=== PATIENT | male | born 2000 | race Caucasian/White ===

== ENCOUNTER 2020-05-03 12:45 | Emergency (ER) | payer OTHER, SELFPAY ==
[2020-05-03 13:30] VITALS: BP 151/102; PULSE 90; RESP 16; TEMP 36.6; O2SAT 98
[2020-05-03 13:57] LABS: Anion Gap 6 mmol/L (8-16); Blood Urea Nitrogen 9 mg/dL (9-20); Calcium 9.5 mg/dL (8.4-10.2); Carbon Dioxide 31 mmol/L (22-30); Chloride 103 mmol/L (98-107); Estimated CRCL calculation 192 ml/min; Estimated Glomerular Filt Rate > 60; Glucose 92 mg/dL (75-110); Magnesium 1.7 mg/dL (1.6-2.3); Potassium 4.5 mmol/L (3.4-5.0); Sodium 140 mmol/L (137-145)
[2020-05-03 14:57] VITALS: BP 140/78; PULSE 89; RESP 18; TEMP 36.7; O2SAT 100
--- NOTE | 2020-05-03 15:52 | ED.EXTPRO ---
HPI - Extremity Problem General Chief complaint: Extremity Problem,Nontraumatic Stated complaint: R ARM PAIN Time Seen by Provider: 05/03/20 15:21 Source: patient Mode of arrival: ambulatory Limitations: no limitations History of Present Illness HPI Narrative: This is a 20 year old male that presents to the ER for muscle spasming over the last week. Reports almost every hour he has cramping that happens in his right forearm and calf. It lasts a couple of seconds and is relieved on its own. Denies any associated symptoms. Denies fever, vomiting, pain, erythema, or edema. Related Data Home Medications Medication Instructions Recorded Confirmed lisinopril 40 mg PO DAILY 01/23/19 Allergies Allergy/AdvReac Type Severity Reaction Status Date / Time No Known Allergies Allergy Unverified 05/03/20 15:02 Review of Systems Review of Systems: Narrative: CONSTITUTIONAL: Denies fever GASTROINTESTINAL: Denies abdominal pain, nausea, vomiting SKIN: Denies rash MUSCULOSKELETAL: Reports myalgias. Denies joint pain NEUROLOGIC: Denies headache, numbness, or weakness. All systems reviewed & are unremarkable except as noted in HPI and below PMFSH Past Medical History Medical History (Updated 05/03/20 @ 17:17 by Xochilt García PA-C) HTN (hypertension) Social History Social History Smoking status: Never smoker Exam Narrative: Exam Narrative: GENERAL: Well-appearing, obese, and in no acute distress. HEAD: Normocephalic, atraumatic. EYES: EOMI. ENT: Nares clear, no rhinorrhea or epistaxis. Mucous membranes moist. Oropharynx without tonsillar hypertrophy exudate or other lesions. Bilateral TMs pearly barrientos non-bulging NECK: Supple. No adenopathy or masses. CHEST: Clear to auscultation. No respiratory distress. No wheezes rales or rhonchi HEART: Regular rate and rhythm. No murmur heard. Normal peripheral pulses. EXTREMITIES: Normal range of motion. No edema. Strength equal in bilateral upper and lower extremities (5/5) SKIN: Warm, dry, no rash. NEURO: No focal deficits. Alert and oriented x3. CN II-XII grossly intact PSYCH: Normal mood and affect Course Vital Signs Vital signs: Vital Signs Temperature 97.8 F 05/03/20 13:30 Pulse Rate 90 05/03/20 13:30 Respiratory Rate 16 05/03/20 13:30 Blood Pressure 151/102 H 05/03/20 13:30 Pulse Oximetry 98 05/03/20 13:30 Temperature 98.0 F 05/03/20 14:57 Pulse Rate 78 05/03/20 17:04 Respiratory Rate 18 05/03/20 17:04 Blood Pressure 138/72 05/03/20 17:04 Pulse Oximetry 99 05/03/20 17:04 MDM - Extremity (Nontraumatic) MDM Narrative Medical decision making narrative: Patient presents to the ER for muscle spasms. He is afebrile and nontoxic-appearing. Vitals are stable. CBC and metabolic panel without concerning findings. Magnesium is normal. ESR and CRP are not elevated. CK is normal. Patient updated on case findings. He was hydrated while in the ED. Instructed to follow-up with primary care provider. Patient was given warnings to return to the ER Lab Data Attestation: I reviewed the patient's lab results. Result diagrams: 05/03/20 16:21 05/03/20 13:38 Labs: Lab Results 05/03/20 05/03/20 05/03/20 Range/Units 13:38 16:21 16:21 WBC 9.3 (4.5-10.0) K/mm3 RBC 5.65 (4.6-6.20) M/mm3 Hgb 15.7 (14.0-18.0) g/dL Hct 47.2 (42.0-52.0) % MCV 83.5 (80-100) fl MCH 27.8 (26-34) pg MCHC 33.3 (32-36) g/dl RDW 13.2 (11.5-14.5) % Plt Count 332 (150-375) k/mm3 MPV 9.4 (7.4-10.4) fl Immature Gran % (Auto) 0.4 (0-0.5) % Neut % (Auto) 66.9 (45.5-73.1) % Lymph % (Auto) 23.2 (18.3-44.2) % Collier % (Auto) 8.2 (2.6-8.5) % Eos % (Auto) 0.9 (0-4.4) % Baso % (Auto) 0.4 (0.2-1.2) % Lymph # (Auto) 2.16 (0.9-3.2) K/mm3 Collier # (Auto) 0.8 H (0.1-0.6) K/mm3 Eos # (Auto) 0.1 (0-0.3) K/mm3
[2020-05-03 16:25] LABS: Basophils Percent Auto 0.4 % (0.2-1.2); Eosinophils Absolute Auto 0.1 K/mm3 (0-0.3); Eosinophils Percent Auto 0.9 % (0-4.4); Hematocrit 47.2 % (42.0-52.0); Hemoglobin 15.7 g/dL (14.0-18.0); Immature Granulocyte Absolute 0.04 K/mm3 (0.00-0.031); Immature Granulocyte Percent A 0.4 % (0-0.5); Lymphocytes Absolute Auto 2.16 K/mm3 (0.9-3.2); Lymphocytes Percent Auto 23.2 % (18.3-44.2); Mean Corpuscular HGB Conc 33.3 g/dl (32-36); Mean Corpuscular Hemoglobin 27.8 pg (26-34); Mean Corpuscular Volume 83.5 fl (80-100); Mean Platelet Volume 9.4 fl (7.4-10.4); Monocytes Absolute Auto 0.8 K/mm3 (0.1-0.6); Monocytes Percent Auto 8.2 % (2.6-8.5); Neutrophils Absolute Auto 6.2 K/mm3 (1.3-6.7); Neutrophils Percent Auto 66.9 % (45.5-73.1); Platelet Count Result 332 k/mm3 (150-375); Red Blood Count 5.65 M/mm3 (4.6-6.20); Red Cell Distribution Width 13.2 % (11.5-14.5); White Blood Count 9.3 K/mm3 (4.5-10.0)
[2020-05-03 16:38] LABS: Creatine Kinase 103 U/L (55-170)
[2020-05-03 16:52] LABS: Alanine Aminotransferase 56 U/L (4-50); Albumin Level 5.1 g/dL (3.5-5.1); Alkaline Phosphatase 83 U/L (38-126); Aspartate Amino Transferase 30 U/L (17-59); Bilirubin,Total 0.3 mg/dL (0.2-1.3); CRP 0.9 mg/dL (<1.0)
[2020-05-03] MEDS: SODIUM CHLORIDE 0.9% IV 1,000 ML 999 ML IV CONT (17:03)
[2020-05-03 17:04] VITALS: BP 138/72; PULSE 78; RESP 18; O2SAT 99
[2020-05-03 17:13] LABS: Erythrocyte Sedimentation Rate 2 mm/hr (0-20)
[2020-05-03 19:23] VITALS: BP 138/72; PULSE 80; RESP 20; O2SAT 100
== END 2020-05-03 19:24 | disposition home or self-care (01) ==
PROVIDERS: Emergency Medicine; Physician Assistant; Emergency Provider Emergency Medicine; PCP Pediatrics
DX: R25.2 Cramp and spasm (principal); I10 Essential (primary) hypertension
CPT/HCPCS: 36415; 80048; 80076; 82550; 83735; 85025; 85652; 86140; 96360; 96361; 99283; J7030

== ENCOUNTER 2023-06-28 14:15 | Outpatient (RCR) | payer OTHER, SELFPAY ==
[2023-06-28 14:19] VITALS: BMI 37.5
[2023-06-28 14:52] VITALS: BMI 37.5
== END 2023-09-17 11:06 | disposition home or self-care (01) ==
LOC: ANHDMC 14:15
PROVIDERS: PCP Nurse Practitioner Family; Visit Provider Nurse Practitioner Family
DX: E78.5 Hyperlipidemia, unspecified (principal); I10 Essential (primary) hypertension; Z68.38 Body mass index [BMI] 38.0-38.9, adult; Z71.3 Dietary counseling and surveillance
CPT/HCPCS: 97802

== ENCOUNTER 2023-11-26 08:30 | Outpatient (CLI) | payer OTHER, SELFPAY ==
--- NOTE | 2023-11-26 08:37 | EST_ITS ---
Patient Info Name: Eh Ken Age: 23 years : 2000 Gender: Male Ht: 70 in Wt: 210 lbs BSA: 2.19 m2 HR: 88 bpm BP: 128 / 60 mmHg Exam Date: 11/26/2023 8:47 AM Exam Location: [facility] Patient Status: Outpatient Admit Date: 11/26/2023 Staff Ordering Physician: Andrea Solorio DO Attending Provider: Andrea Solorio DO Exercise Technologist: Samantha Lew RDCS Exercise Physician: Andrea Solorio DO Exam Type: CA stress test treadmill Study Info A treadmill exercise stress test was performed. Summary 1. 1. Negative Minesh exercise stress test for ischemic ST changes by ECG criteria. 2. 2. Good functional capacity, achieving 10 METs of workload. 3. 3. Appropriate HR response to exercise. 4. 4. Appropriate HR recovery at 1 minute post exercise. 5. 5. No imaging with stress testing. 6. 6. Patient informed of the above results. Protocol: Minesh Stress ECG Details Stage: REST Duration (min): 1 min : 48 sec Speed (mph): 0.0 Grade (%): 0 HR (bpm): 90 SBP (mmHg): 128 DBP (mmHg): 60 METS: --- Stage: REST Duration (min): 7 min : 44 sec Speed (mph): 0.0 Grade (%): 0 HR (bpm): 100 SBP (mmHg): 128 DBP (mmHg): 60 METS: --- Stage: STAGE 1 Duration (min): 1 min : 0 sec Speed (mph): 1.7 Grade (%): 10 HR (bpm): 109 SBP (mmHg): 128 DBP (mmHg): 60 METS: --- Stage: STAGE 1 Duration (min): 2 min : 0 sec Speed (mph): 1.7 Grade (%): 10 HR (bpm): 113 SBP (mmHg): 128 DBP (mmHg): 60 METS: --- Stage: STAGE 1 Duration (min): 3 min : 0 sec Speed (mph): 1.7 Grade (%): 10 HR (bpm): 121 SBP (mmHg): 147 DBP (mmHg): 72 METS: --- Stage: STAGE 2 Duration (min): 1 min : 0 sec Speed (mph): 2.5 Grade (%): 12 HR (bpm): 115 SBP (mmHg): 147 DBP (mmHg): 72 METS: --- Stage: STAGE 2 Duration (min): 2 min : 0 sec Speed (mph): 2.5 Grade (%): 12 HR (bpm): 103 SBP (mmHg): 159 DBP (mmHg): 68 METS: --- Stage: STAGE 2 Duration (min): 3 min : 0 sec Speed (mph): 2.5 Grade (%): 12 HR (bpm): 122 SBP (mmHg): 159 DBP (mmHg): 68 METS: --- Stage: STAGE 3 Duration (min): 1 min : 0 sec Speed (mph): 3.4 Grade (%): 14 HR (bpm): 33 SBP (mmHg): 159 DBP (mmHg): 68 METS: --- Stage: STAGE 3 Duration (min): 2 min : 0 sec Speed (mph): 3.4 Grade (%): 14 HR (bpm): 56 SBP (mmHg): 145 DBP (mmHg): 57 METS: --- Stage: STAGE 3 Duration (min): 3 min : 0 sec Speed (mph): 3.4 Grade (%): 14 HR (bpm): 59 SBP (mmHg): 145 DBP (mmHg): 57 METS: --- Stage: RECOVERY Duration (min): 0 min : 59 sec Speed (mph): 0.0 Grade (%): 0 HR (bpm): 100 SBP (mmHg): 145 DBP (mmHg): 57 METS: --- Stage: RECOVERY Duration (min): 1 min : 59 sec Speed (mph): 0.0 Grade (%): 0 HR (bpm): 135 SBP (mmHg): 145 DBP (mmHg): 57 METS: --- Stage: RECOVERY Dura
== END 2023-11-26 08:31 | disposition home or self-care (01) ==
PROVIDERS: PCP Nurse Practitioner Family; Visit Provider Internal Medicine Cardiovascular Disease
DX: R07.9 Chest pain, unspecified (principal)
CPT/HCPCS: 93017

== ENCOUNTER 2024-03-24 09:36 | Inpatient (IN) | payer OTHER, SELFPAY ==
--- NOTE | ~2024-03-24 | MR_ITS ---
EXAMINATION: MR lumbar spine wo/w con DATE: 03/25/2024 12:32 INDICATION: Paresthesias at the toes, fingers and trunk TECHNIQUE: Magnetic resonance imaging (MRI) of the lumbar spine was performed without and with 17 mL Multihance intravenous contrast. Sequences included sagittal T2-weighted FSE, sagittal T2-weighted FS FSE, and sagittal and axial T1-weighted FSE. Postcontrast sequences included axial T2-weighted FSE, sagittal T1-weighted FSE, and axial and sagittal T1-weighted FS FSE. COMPARISON: None FINDINGS: 7 degrees lumbar levocurvature. Sagittal alignment is normal. Vertebral body heights are normal. Nor mal marrow signal. Mild disc height loss at L4-L5. The conus medullaris terminates at L1. There is no rmal signal in the caudal spinal cord. No abnormally enhancing lesions identified. Paravertebral soft tissues are unremarkable. The following disc levels are specifically discussed: L1-L2: The disc does not extend beyond the endplate margin. There is minimal bilateral facet joint os teoarthritis. There is no neural foraminal stenosis. There is no central canal stenosis. L2-L3: The disc does not extend beyond the endplate margin. There is mild bilateral facet joint osteo arthritis. There is no neural foraminal stenosis. There is no central canal stenosis. L3-L4: The disc does not extend beyond the endplate margin. There is mild left and minimal right face t joint osteoarthritis. There is no neural foraminal stenosis. There is no central canal stenosis. L4-L5: The disc does not extend beyond the endplate margin. There is mild bilateral facet joint osteo arthritis. There is no neural foraminal stenosis. There is no central canal stenosis. L5-S1: The disc does not extend beyond the endplate margin. There is mild right and minimal left face t joint osteoarthritis. There is no neural foraminal stenosis. There is no central canal stenosis. IMPRESSION: 1. 7 degrees lumbar levocurvature with minimal spondylosis. Otherwise unremarkable lumbar spine MRI w ith no abnormally enhancing lesions. Reviewed, dictated and finalized at location A. INUOUS PROCESS TANNER ROTARY DRUM IMPRESSION: 1. 7 degrees lumbar levocurvature with minimal spondylosis. Otherwise unremarka ble lumbar spine MRI with no abnormally enhancing lesions.
--- NOTE | ~2024-03-24 | CT_ITS ---
EXAMINATION: CT brain wo con DATE: 03/24/2024 10:42 INDICATION: Paresthesias of the hands, legs, and torso. TECHNIQUE: Computed tomography (CT) of the head was performed without intravenous contrast. The mA wa s adjusted according to patient size. Iterative reconstruction technique was employed. The dose-lengt h product was 605.33 mGy-cm. COMPARISON: None FINDINGS: There are scattered areas of low attenuation in the cerebral white matter. There is no int racranial hemorrhage, acute infarction, or abnormal intracranial mass lesion. The ventricles are norm al in size. The orbits are normal. The paranasal sinuses are clear. The mastoid air cells are normal. IMPRESSION: 1. Mild nonspecific cerebral white matter disease. The differential diagnosis includes premature airplane flight attendant supervisor jacob small vessel ischemic disease (especially if the patient has cardiovascular risk factors), demyel inating disease such as multiple sclerosis, drug abuse, vasculitis, or reactive astrocytosis (gliosis ) secondary to nonspecific etiology. Reviewed, dictated and finalized at location A. CONVERSION ANALYST IMPRESSION: 1. Mild nonspecific cerebral white matter disease. The differential diagnosis i ncludes premature chronic small vessel ischemic disease (especially if the bethany ent has cardiovascular risk factors), demyelinating disease such as multiple sc lerosis, drug abuse, vasculitis, or reactive astrocytosis (gliosis) secondary t o nonspecific etiology.
--- NOTE | ~2024-03-24 | XR_ITS ---
EXAMINATION: XR lumbar puncture diagnostic DATE: 03/26/2024 10:45 INDICATION: Suspected multiple sclerosis with abnormal brain MR and paresthesias at the fingers and t oes TECHNIQUE: The procedure including the risks and benefits was discussed with the patient. Risks discu ssed included spinal headache, cerebrospinal fluid leak, bleeding, and infection. The patient underst ood the risks and agreed to proceed. A timeout was performed to verify the patient's name, date of , and procedure to be performed. The skin overlying the L4-L5 level was prepped and draped in usual sterile fashion. Subcutaneous 1% lidocaine was used for local anesthesia. A 22 gauge spinal n eedle was advanced under fluoroscopic guidance. The needle was removed and the entry site was cleaned and dressed. There were no immediate complications. A total of 1 fluoroscopic image(s) were obtaine d. The amount of fluoroscopy time used during this procedure was 2.1 minutes. Total DAP was 0.5 Gycm^2 The patient was taken to the nursing area for observation. FINDINGS: Real-time fluoroscopy demonstrates the needle at the L4-L5 level. Opening pressure was 14 c m water. (Normal range is variably defined as 6-20 cm water and up to 25 cm water in obese patients. Pressure >25 cm water is one of the modified Dandy criteria for idiopathic intracranial hypertension) . 15 mL of clear, colorless fluid was collected in 4 tubes. IMPRESSION: 1. Successful fluoro-guided lumbar puncture with normal opening pressure of 14 cm water. Reviewed, dictated and finalized at location A. KEEPER
--- NOTE | ~2024-03-24 | MR_ITS ---
EXAMINATION: MR thoracic spine wo/w con DATE: 03/25/2024 12:31 INDICATION: Paresthesias of the toes, fingers and trunk. Abnormal CT TECHNIQUE: Magnetic resonance imaging (MRI) of the thoracic spine was performed without and with 17 m L Multihance intravenous contrast. Sagittal localizer T1-weighted FSE of the cervicothoracic spine wa s obtained. Sequences included sagittal T2-weighted FSE, sagittal T2-weighted FS FSE, sagittal T1-simran ghted FSE and axial T1-weighted SE. Postcontrast sequences included axial T2-weighted FSE, sagittal T 1-weighted FS FSE, and axial T1-weighted FS SE. COMPARISON: None FINDINGS: Alignment is normal.Vertebral body heights are normal. Normal marrow signal.Minimal to mild disc heig ht loss at T3-T4 through T8-T9. The discs do not extend beyond the endplate margins with no central c anal stenosis. There is multilevel minimal to mild thoracic facet osteoarthritis most prominent in th e lower thoracic spine. No neural foraminal stenosis. There are T2 hyperintense cord lesions at the a nterior midline at T8-T9 and at T7, on the left posteriorly at C7 and posterior centrally at C4-C5. T he conus terminates at L1. Paravertebral soft tissues are unremarkable. IMPRESSION: 1. 2 spinal cord lesions with increased T2 signal but without enhancement in the lower thoracic spine and a couple in the lower cervical spine consistent with multiple sclerosis. Reviewed, dictated and finalized at location A. MAIL CARRIER IMPRESSION: 1. 2 spinal cord lesions with increased T2 signal but without enhancement in th e lower thoracic spine and a couple in the lower cervical spine consistent with multiple sclerosis.
--- NOTE | ~2024-03-24 | MR_ITS ---
EXAMINATION: MR cervical spine wo/w con DATE: 03/25/2024 12:31 INDICATION: Paresthesias of the toes, fingers, and trunk/abdomen. TECHNIQUE: Magnetic resonance imaging (MRI) of the cervical spine was performed without and with 17 m L MultiHance intravenous contrast. COMPARISON: None FINDINGS: There is mild kyphosis of cervical spine. There is mild chronic anterior wedging of C7 and T1 vertebral bodies. Intervertebral disc heights are normal. There are approximately 3 ill-defined le sions of increased T2-weighted signal intensity in the cervical spinal cord. No contrast enhancement. The following disc levels are specifically discussed: C2-C3 through C7-T1: The disc does not extend beyond the endplate margin. There is no uncovertebral j oint osteoarthritis. There is no facet joint osteoarthritis. There is no neural foraminal stenosis. T here is no central canal stenosis. IMPRESSION: 1. Spinal cord lesions, consistent with multiple sclerosis. Reviewed, dictated and finalized at location A. MENTATION ENGINEER
--- NOTE | ~2024-03-24 | MR_ITS ---
EXAMINATION: MR brain/brain stem wo/w con DATE: 03/25/2024 12:30 INDICATION: Paresthesias of toes, fingers, and trunk/abdomen. TECHNIQUE: Magnetic resonance imaging (MRI) of the brain and brainstem was performed without and with 17 mL MultiHance intravenous contrast. COMPARISON: Head CT 03/24/2024 FINDINGS: There are greater than 30 total lesions of increased T2-weighted signal intensity in the br ain. Of these lesions, multiple are periventricular, multiple are juxtacortical, and multiple are inf ratentorial. None of the lesions enhance. There is no acute ischemic infarct or intracranial hemorrha ge. The ventricles are normal in size. The orbits are normal. There is mild mucosal thickening in rig ht maxillary sinus. The mastoid air cells are normal. IMPRESSION: 1. Brain lesions, most likely multiple sclerosis. Reviewed, dictated and finalized at location A. L JOB TITLES
[2024-03-24 09:46] VITALS: BP 152/84; PULSE 99; RESP 15; TEMP 36.6; O2SAT 100
[2024-03-24 10:51] VITALS: RESP 20; O2SAT 100
[2024-03-24 10:55] VITALS: BP 138/69; PULSE 98; RESP 18; O2SAT 100
[2024-03-24 10:59] LABS: Basophils Percent Auto 0.5 % (0.2-1.2); Hematocrit 41.4 % (42.0-52.0); Hemoglobin 14.3 g/dL (14.0-18.0); Immature Granulocyte Absolute 0.01 K/mm3 (0.00-0.031); Immature Granulocyte Percent A 0.2 % (0-0.5); Lymphocytes Absolute Auto 1.65 K/mm3 (0.9-3.2); Lymphocytes Percent Auto 39.5 % (18.3-44.2); Mean Corpuscular HGB Conc 34.5 g/dl (32-36); Mean Corpuscular Hemoglobin 28.7 pg (26-34); Mean Corpuscular Volume 83.1 fl (80-100); Mean Platelet Volume 9.7 fl (7.4-10.4); Monocytes Absolute Auto 0.3 K/mm3 (0.1-0.6); Monocytes Percent Auto 7.7 % (2.6-8.5); Neutrophils Absolute Auto 2.1 K/mm3 (1.3-6.7); Neutrophils Percent Auto 51.1 % (45.5-73.1); Platelet Count Result 329 k/mm3 (150-375); Red Blood Count 4.98 M/mm3 (4.6-6.20); White Blood Count 4.2 K/mm3 (4.5-10.0)
[2024-03-24 11:11] LABS: Alanine Aminotransferase 30 U/L (6-50); Albumin Level 4.9 g/dL (3.5-5.1); Alkaline Phosphatase 77 U/L (38-126); Anion Gap 16 mmol/L (4-12); Aspartate Amino Transferase 23 U/L (17-59); Bilirubin,Total 0.8 mg/dL (0.2-1.3); Blood Urea Nitrogen 11 mg/dL (9-20); Carbon Dioxide 20 mmol/L (22-30); Chloride 104 mmol/L (98-107); Estimated CRCL calculation 136 ml/min; Estimated Glomerular Filt Rate > 60; Glucose 88 mg/dL (65-110); Magnesium 1.9 mg/dL (1.6-2.3); Phosphorus 3.1 mg/dL (2.5-4.5); Potassium 3.7 mmol/L (3.4-5.0); Sodium 140 mmol/L (137-145)
[2024-03-24 11:49] LABS: Vitamin D 25 Hydroxy 21.1 ng/mL
[2024-03-24 12:17] LABS: Folic Acid 4.8 ng/mL (2.76->20)
--- OUTSIDE RECORDS SUMMARY | 2024-03-24 12:22 | XMS_ITS | Referral Summary ---
Author Organization [facility] Address [address] [place] [address] Care Team Providers Care Rock Crusher Operator Name Role Phone Jannet Srinivasan MD Primary Care Provider [phone] [facility],non-owned Affiliates and Associated Physician Practices is amultiple site organization consisting of ambulatory clinics and hospital sitesin [place], [place], [place] and [place]. This disclosure is being madepursuant to the Care Everywhere program and may not contain all information available regarding this patient. Last updated 17.[facility] Allergies No known active allergies Medications * Be aware that medications may not be up to date on this document. Alwaysverify current medications with the patient. Medication Sig Dispensed Refills Start Date End Date Status lisinopril (PRINIVIL; ZESTRIL) 30 MG tablet TAKE 1 (ONE) TABLET BY MOUTH ONCE DAILY TAKE IN EVENING. 90 tablet 09/09/2020 Active Active Problems Problem Noted Date Diagnosed Date White coat syndrome with diagnosis of hypertensi on 10/03/2018 Essential hypertension 09/25/2016 LVH (left ventricular hypertrophy) 09/25/2016 BMI (body mass index) pediat jana, > 99% for age, obese child, tertiary care intervention 09/25/2016 S/P arthroscopic surgery of right knee 7 Acute lateral meniscus tear of right knee 2016 Acute lateral meniscal tear 04/30/2016 Right knee injury 04/25/2016 Quadriceps muscle strain 12/02/2013 Hypercholesteremia High risk medication use Immunizations Name Administration Dates Next Due INFLUENZA VACCINE 12/10/2019 Social History Tobacco Use Types Packs/Day Years Used Date Smoking Tobacco: Light Smoker Smokeless Tobacco: Never Comments:smokes one cigarett e, once a week Alcohol Use Standard Drinks/Week Comments No 0 (1 standard drink = 0.6 oz pur e alcohol) Sex and Gender Information Value Date Recorded Sex Assigned at Not on file Gender Identity Not on file Sexual Orientation Not on file Last Filed Vital Signs Vital Sign Reading Time Taken Comments Blood Pressure 152/78 12/24/2019 2:14 PM [employer] Pulse 94 10/03/2018 5:06 PM CDT Temperature 36.9 C (98.4 F) 10/03/2018 5:06 PM CDT Respiratory Rate 16 10/03/2018 5:06 PM CDT Oxygen Saturation 99% 10/03/2018 5:06 PM CDT Inhaled Oxygen Concentration - - Weight 129.9 kg (286 lb 6 oz) 12/24/2019 2:14 PM [employer] Height 179.5 cm (5' 10.67 ) 12/24/2019 2:[address] Body Mass Index 40.32 12/24/2019 2:14 PM [employer] Plan of Treatment Not on file Medical Devices Implanted Type Area Program Officer Device Identifier Shelf Expiration Date Model / Serial / Lot Truespan Meniscal Repair System Implanted:Qty: 6 on 05/01/2016 by Gume Chahal MD at [facility] Right: Knee 02/04/2019 [id number] / / [id number] Administered Medications Care Teams Rock Crusher Operator Relationship Specialty Start Date End Date Jannet Srinivasan MD [address] [place] [address] [address] [place] [id number] PCP - General Pediatrics 11/24/13
--- OUTSIDE RECORDS SUMMARY | 2024-03-24 12:22 | XMS_ITS | Clinical Summary ---
Author Organization [facility] Address [address] [place] [address] Care Team Providers Care Customs Manager Name Role Phone Jannet Srinivasan MD Primary Care Provider [phone] Source Comments [facility],non-owned Affiliates and Associated Physician Practices is amultiple site organization consisting of ambulatory clinics and hospital sitesin [place], [place], [place] and [place]. This disclosure is being madepursuant to the Care Everywhere program and may not contain all information available regarding this patient. Last updated 17.[facility] Allergies No known active allergies Medications * [...] Comments Blood Pressure 152/78 12/24/2019 2:14 PM CARBONATION EQUIPMENT OPERATOR Pulse 94 10/03/2018 5:06 PM CDT Temperature 36.9 C (98.4 F) 10/03/2018 5:06 PM CDT Respiratory Rate 16 10/03/2018 5:06 PM CDT Oxygen Saturation 99% 10/03/2018 5:06 PM CDT Inhaled Oxygen Concentration - - Weight 129.9 kg (286 lb 6 oz) 12/24/2019 2:14 PM CARBONATION EQUIPMENT OPERATOR Height 179.5 cm (5' 10.67 ) 12/24/2019 2:[address] Body Mass Index 40.32 12/24/2019 2:14 PM CARBONATION EQUIPMENT OPERATOR Plan of Treatment Health Maintenance Due Date Last Done Comments HIV SCREENING 2015 HPV VACCINE (1 - Male 3-dose series) 2015 MENINGOCOCCAL (Group B) VACC INE (1 of 2 - Standard) 2016 HEPATITIS C SCREENING 03/20/2018 DTAP/TDAP/TD VACCINES (1 - Tdap) 2019 HEPATITIS B VACCINE (1 of 3 - 19+ 3-dose series) 2019 PNEUMOCOCCAL VACCINE (1 of 2 - PCV) 2019 COVID-19 VACCINE (1 - 2023-2 5 season) 2023 INFLUENZA VACCINE (#1) 2023 12/10/2019 DEPRESSION SCREENING 02/06/2024 ZOSTER VACCINE (1 of 2) 2050 HIB VACCINE Aged Out No longer eligi ble based on patient's age to complete this topic MENINGOCOCCAL VACCINE Aged Out No jos linda eligible based on patient's age to complete this topic Medical Devices Implanted Type Area Scuba Diver Device Identifier Shelf Expiration Date Model / Serial / Lot Truespan Meniscal Repair System Implanted:Qty: 6 on 05/01/2016 by Gume Chahal MD at [facility] Right: Knee 02/04/2019 [id number] / / [id number] Care Teams Customs Manager Relationship Specialty Start Date End Date Jannet Srinivasan MD [facility] [address] [place] [address] PCP - General Pediatrics 11/24/13
--- OUTSIDE RECORDS SUMMARY | 2024-03-24 12:22 | XMS_ITS | Patient Health Summary ---
Author Organization [facility] Namely Address [address] [place] [address] Care Team Providers Care Tie In Machine Operator Name Role Phone Jannet Srinivasan MD Primary Care Provider [phone] Note from [facility],non-owned Affiliates and Associated Physician Practices is amultiple site organization consisting of ambulatory clinics and hospital sitesin [place], [place], [place] and [place]. This disclosure is being madepursuant to the Care Everywhere program and may not contain all information available regarding this patient. Last updated 17.[facility] Allergies No known active allergies Medications * Be aware that medications may not be up to date on this document. Alwaysverify current medications with the patient. * lisinopril (PRINIVIL; ZESTRIL) 30 MG tablet(Started 09/09/2020) TAKE 1 (ONE) TABLET BY MOUTH ONCE DAILY TAKE IN EVENING. Active Problems Problem Noted Date Diagnosed Date [...] 12/02/2013 Hypercholesteremia High risk medication use Immunizations * INFLUENZA VACCINE(Given 12/10/2019) Social History Tobacco Use Types Packs/Day Years [...] Comments Blood Pressure 152/78 12/24/2019 2:14 PM MACHINE II CUTTER Pulse 94 10/03/2018 5:06 PM CDT Temperature 36.9 C (98.4 F) 10/03/2018 5:06 PM CDT Respiratory Rate 16 10/03/2018 5:06 PM CDT Oxygen Saturation 99% 10/03/2018 5:06 PM CDT Inhaled Oxygen Concentration - - Weight 129.9 kg (286 lb 6 oz) 12/24/2019 2:14 PM MACHINE II CUTTER Height 179.5 cm (5' 10.67 ) 12/24/2019 2:[address] Body Mass Index 40.32 12/24/2019 2:14 PM MACHINE II CUTTER Medical Devices Implanted Type Area Pathology Laboratory Director Device Identifier Shelf Expiration Date Model / Serial / Lot Truespan Meniscal Repair System Implanted:Qty: 6 on 05/01/2016 by Gume Chahal MD at [facility] [place] [facility] Right: Knee 02/04/2019 [id number] / / [id number] Procedures * ECHO CONSULT - PEDIATRIC(Performed 12/24/2019) Performed for Essential hypertension, LVH (left ventricular hypertrophy) * URINALYSIS MICROSCOPIC ONLY REFLEXED(Performed 12/20/2019) Performed for Essential hypertension, Hypercholesteremia * PROTEIN CREATININE RATIO URINE RANDOM PNL(Performed 12/20/2019) Performed for Essential hypertension, Hypercholesteremia * URINALYSIS W/MICROSCOPIC NO CULTURE(Performed 12/20/2019) Performed for Essential hypertension, Hypercholesteremia * VITAMIN D 25-HYDROXY(Performed 12/20/2019) Performed for Essential hypertension, Hypercholesteremia * CYSTATIN C LEVEL(Performed 12/20/2019) Performed for Essential hypertension, Hypercholesteremia * URIC ACID BLOOD(Performed 12/20/2019) Performed for Essential hypertension, Hypercholesteremia * PHOSPHORUS BLOOD(Performed 12/20/2019) Performed for Essential hypertension, Hypercholesteremia * PTH INTACT(Performed 12/20/2019) Performed for Essential hypertension, Hypercholesteremia * IRON + TIBC PANEL(Performed 12/20/2019) Performed for Essential hypertension, Hypercholesteremia * FERRITIN(Performed 12/20/2019) Performed for Essential hypertension, Hypercholesteremia * COMPREHENSIVE METABOLIC PANEL(Performed 12/20/2019) Performed for Essential hypertension, Hypercholesteremia * LIPID PROFILE(Performed 12/20/2019) Performed for Essential hypertension, Hypercholesteremia * CBC W/O DIFFERENTIAL(Performed 12/20/2019) Performed for Essential hypertension, Hypercholesteremia * SKIN TEST PPD - POINT OF CARE(Performed 10/08/2018) Performed for PPD screening test * SKIN TEST PPD - POINT OF CARE(Performed 10/03/2018) Performed for PPD screening test * URINALYSIS W/MICROSCOPIC NO CULTURE(Performed 10/02/2018) Performed for Essential hypertension * PROTEIN CREATININE RATIO URINE RANDOM PNL(Performed 10/02/2018) Performed for Essential hypertension * ECHO CONSULT - PEDIATRIC(Performed 10/02/2018) Performed for Essential hypertension * CYSTATIN C LEVEL(Performed 04/20/2018) Performed for Essential hypertension, malignant, LVH (left ventricular hypertrophy) * IRON + TIBC PANEL(Performed 04/20/2018) Performed for Essential hypertension, malignant, LVH (left ventricular hypertrophy) * FERRITIN(Performed 04/20/2018) Performed for Essential hypertension, malignant, LVH (left ventricular hypertrophy) * PTH INTACT(Performed 04/20/2018) Performed for Essential hypertension, malignant, LVH (left ventricular hypertrophy) * AST BLOOD(Performed 04/20/2018) Performed for Essential hypertension, malignant, LVH (left ventricular hypertrophy) * ALT(Performed 04/20/2018) Performed for Essential hypertension, malignant, LVH (left ventricular hypertrophy) * LIPID PROFILE(Performed 04/20/2018) Performed for Essential hypertension, malignant, LVH (left ventricular hypertrophy) * CBC W/O DIFFERENTIAL(Performed 04/20/2018) Performed for Essential hypertension, malignant, LVH (left ventricular hypertrophy) * RENAL FUNCTION PANEL(Performed 04/20/2018) Performed for Essential hypertension, malignant, LVH (left ventricular hypertrophy) * URINALYSIS MICROSCOPIC ONLY REFLEXED(Performed 04/20/2018) Performed for Essential hypertension, malignant, LVH (left ventricular hypertrophy) * PROTEIN CREATININE RATIO URINE RANDOM PNL(Performed 04/20/2018) Performed for Essential hypertension, malignant, LVH (left ventricular hypertrophy) * URINALYSIS W/MICROSCOPIC NO CULTURE(Performed 04/20/2018) Performed for Essential hypertension, malignant, LVH (left ventricular hypertrophy) * VITAMIN D 25-HYDROXY(Performed 04/20/2018) Performed for Essential hypertension, malignant, LVH (left ventricular hypertrophy) * LAB RESULTS ORDER(Performed 09/18/2017) * ECHO CONSULT - PEDIATRIC(Performed 09/03/2017) Performed for Essential hypertension * LAB RESULTS ORDER(Performed 08/29/2017) * PROTEIN CREATININE RATIO URINE RANDOM PNL(Performed 01/16/2017) Performed for LVH (left ventricular hypertrophy) * URINALYSIS W/MICROSCOPIC NO CULTURE(Performed 01/16/2017) Performed for LVH (left ventricular hypertrophy) * LAB RESULTS ORDER(Performed 11/29/2016) * LAB RESULTS ORDER(Performed 08/22/2016) * IMAGING/RADIOLOGY/XRAY RESULTS ORDER(Performed 08/22/2016) * ECHO CONSULT - PEDIATRIC(Performed 08/18/2016) Performed for Elevated blood pressure reading without diagnosis of hypertension * CARDIAC RHYTHM STRIP ORDER(Performed 05/03/2016) * ARTHROSCOPY KNEE MENISCECTOMY LATERAL(Performed 05/01/2016) Performed for Acute lateral meniscal tear, right, subsequent encounter Results * ECHO CONSULT - PEDIATRIC (12/24/2019 1:33 PM MACHINE II CUTTER) Only the most recent of4 resultswithin the time period is included. 12/24/2019 1:33 PM MACHINE II CUTTER Narrative Procedure Note Kaz Lebron, [facility] - 12/24/2019 [address] [place] [address] Fax Non-Congenital Transthoracic Report Pat.Name: GIFTY CRESENCIO Max Pat.ID: [id number] .Date: 12/24/2019 Refer.: PHOEBE KING Exam Time: 1:33:00 PM Study Type:Non-Congenital TTE Height: 182cm Weight: 131.1kg BSA: 2.48 m2 Age: 2 2000,19Y Sex: MALE Sonogrphr: Mikael Lynch RDCS Pat. Stat.:Outpatient CPT - 4: 62514 Reason for Study: Essential hypertesion History / Clinical: TTE Procedures: 2D Non-congenital, Doppler Complete, Color Flow Race: 1 Visit ID: [id number] SUMMARY: Impression: Poor acoustic windows Mild concentric left ventricular hypertrophy No pathologic valvular stenosis or regurgitation. Normal left ventricular systolic function. Compared to prior echocardiogram 10/02/18, no significant change Findings: Anatomic Relationships: Abdominal situs solitus. There is levocardia. Atrial situs solitus. The AV alignment is concordant. The ventricular looping is D-looped. The VA connection is concordant. The arterial relationships are normal. Systemic Veins: Normal right SVC. Normal IVC. Pulmonary Veins: Pulmonary venous return not well visualized. Right Atrium: The right atrial size is normal. Left Atrium: The left atrial size is normal. Atrial Septum: Intact atrial septum. Left to right atrial shunt, none. Tricuspid Valve: The tricuspid valve is structurally normal. There is no stenosis. There is physiologic regurgitation present. Mitral Valve: The mitral valve is structurally normal. There is no stenosis. There is no regurgitation present. Right Ventricle: The cavity size is normal. The wall thickness is normal. The systolic function is normal. RV Outflow Tract: The outflow tract is normal. Left Ventricle: The cavity size is normal. The wall thickness is mildly increased. The systolic function is normal. LV Outflow Tract: The outflow tract is normal. Ventricular Septum: The septal motion is normal. There is no defect with no shunting. Pulmonary Valve: The pulmonic valve is structurally normal. There is no stenosis. There is physiologic regurgitation present. Aortic Valve: The aortic valve is structurally normal. There is no stenosis. There is no regurgitation present. Pulmonary Artery: The MPA is normal. The LPA is not well visualized. The RPA is not well visualized. Aorta: The aortic root is normal. The aortic arch is patent with no flow acceleration;. The arch sidedness is not evaluated. PDA: No PDA with no shunting. Coronary Arteries: Not evaluated. Pericardium: No pericardial effusion. MEASUREMENTS: MMODE Ventricles LVIDd 50.84 mm (zsc -1.4) LV%fs 55.33 % (zsc 4.6) LVIDs 22.71 mm (zsc -2.7) LV EF 85.72 % IVSd 17.31 mm (zsc 2.4) LV Mass 296.82 g (zsc 0.3) IVSs 20.82 mm (zsc 2.2) LV MaIx 119.69 g/m LVPWd 10.55 mm (zsc -0.2) LV Ma/ht 163.09 g/m LVPWs 23.26 mm Signed 12/24/2019 02:10 PM Shirley Wade MD Patience Chance MD ECHO ORDERABLES [facility] [address] [place] [address] * URINALYSIS MICROSCOPIC ONLY REFLEXED (12/20/2019 10:05 AM MACHINE II CUTTER) Only the most recent of2 resultswithin the time period is included. WBC UA 0-5 0 - 5 /hpf [facility] INSURANCE BILL RBC UA 0-2 0 - 2 /hpf [facility] INSURANCE BILL Epithelial Cells (non renal) None seen 0 - 10 /hpf [facility] INSURANCE BILL Epithelial Cells (renal) NOT NEEDED [facility] INSURANCE BILL Comment:Ancillary determined the test is not needed. Casts ua NOT NEEDED [facility] INSURANCE BILL Comment:Ancillary determined the test is not needed. Casts UA NOT NEEDED [facility] INSURANCE BILL Comment:Ancillary determined the test is not needed. Crystals UA NOT NEEDED [facility] INSURANCE BILL Comment:Ancillary determined the test is not needed. Crystals UA NOT NEEDED [facility] INSURANCE BILL Comment:Ancillary determined the test is not needed. Mucus UA Present Not Estab. [facility] INSURANCE BILL Bacteria UA Few None seen/Few [facility] INSURANCE BILL Yeast UA NOT NEEDED [facility] INSURANCE BILL Comment:Ancillary determined the test is not needed. Trichomonas UA NOT NEEDED [facility] INSURANCE BILL Comment:Ancillary determined the test is not needed. Comment Urine NOT NEEDED [facility] INSURANCE BILL Comment: FASTING Ancillary determined the test is not needed. 12/20/2019 10:0 5 AM MACHINE II CUTTER 12/20/2019 Narrative Resulting Agency Comment Lab Testing performed at: [employer] [address] [id number] Patience Chance MD LAB - URINALYSIS ORD ERABLES Performing Organization Address City/[facility] Co de Phone Number [facility] INSURANCE BILL [address] [place] [address] * (ABNORMAL) URINALYSIS W/MICROSCOPIC NO CULTURE (12/20/2019 10:05 AM MACHINE II CUTTER) Only the most recent of4 resultswithin the time period is included. Specific [place] UA 1.023 1.005 - 1.030 [facility] INSURANCE BILL pH UA 6.0 5.0 - 7.5 [facility] INSURANCE BILL Color UA Yellow Yellow [facility] INSURANCE BILL Appearance Clear Clear [facility] INSURANCE BILL Leukocyte UA Negative Negative [facility] INSURANCE BILL Protein UA 1+(A) Negative/Tra ce [facility] INSURANCE BILL Glucose UA Negative Negative [facility] INSURANCE BILL Ketone UA Trace(A) Negative [facility] INSURANCE BILL Occult Blood Urine Negative Negative [facility] INSURANCE BILL Bilirubin UA Negative Negative [facility] INSURANCE BILL Urobilinogen 0.2 0.2 - 1.0 mg/dL [facility] INSURANCE BILL Nitrite UA Negative Negative [facility] INSURANCE BILL Microscopic Examination Urine See below: [facility] INSURANCE BILL Comment: Microscopic was indicated and was performed. FASTING Microscopic Examination Urine NOT NEEDED [facility] INSURANCE BILL Comment: FASTING Ancillary determined the test is not needed. Urine URINE SPECIMEN OBTAINED BY CLEAN CATCH PROCEDURE / Unknown 12/20/2019 10:05 AM MACHINE II CUTTER 12/20/2019 Narrative Resulting Agency Comment Lab Testing performed at: [employer] [address] [id number] Patience Chance MD LAB - URINALYSIS ORD ERABLES Performing Organization Address City/State/[facility] de Phone Number [facility] INSURANCE BILL [address] [place] [address] * CYSTATIN C LEVEL (12/20/2019 10:05 AM MACHINE II CUTTER) Only the most recent of2 resultswithin the time period is included. Cystatin C 0.84 0.62 - 1.16 mg/L [facility] INSURANCE BILL Comment:FASTING Blood BLOOD SPECIMEN / Unknown 12/20/2019 10:05 AM MACHINE II CUTTER 12/20/2019 Narrative Resulting Agency Comment Lab Testing performed at: [facility] [id number] Patience Chance MD LAB - CHEMISTRY ROBERTO SCOTT Performing Organization Address [facility] de Phone Number [facility] INSURANCE BILL [address] [place] [address] * URIC ACID BLOOD (12/20/2019 10:05 AM MACHINE II CUTTER) Uric Acid 8.3 3.7 - 8.6 mg/dL [facility] INSURANCE BILL Comment: Therapeutic target for gout patients: <6.0 FASTING Blood BLOOD SPECIMEN / Unknown 12/20/2019 10:05 AM MACHINE II CUTTER 12/20/2019 Narrative Resulting Agency Comment Lab Testing performed at: [facility] [employer] [facility] [id number] Patience Chance MD LAB - CHEMISTRY ROBERTO SCOTT Performing Organization Address [facility] de Phone Number [facility] INSURANCE BILL [address] [place] [address] * PTH INTACT (12/20/2019 10:05 AM MACHINE II CUTTER) Only the most recent of2 resultswithin the time period is included. PTH Intact 25 15 - 65 pg/mL [facility] INSURANCE BILL Comment:FASTING Blood BLOOD SPECIMEN / Unknown 12/20/2019 10:05 AM MACHINE II CUTTER 12/20/2019 Narrative Resulting Agency Comment Lab Testing performed at: [employer] [facility] [id number] Patience Chance MD LAB - CHEMISTRY ROBERTO SCOTT Performing Organization Address [facility] de Phone Number [facility] [address] [place] [address] * (ABNORMAL) VITAMIN D (25-HYDROXY) (12/20/2019 10:05 AM MACHINE II CUTTER) Only the most recent of2 resultswithin the time period is included. Vitamin D, 25 Hydroxy 20.3(L) 30.0 - 100.0 ng/mL [facility] INSURANCE BILL Comment: Vitamin D deficiency has been defined by the [place] of Medicine and an Endocrine Society practice guideline as a level of serum 25-OH vitamin D less than 20 ng/mL (1,2). The Endocrine Society went on to further define vitamin D insufficiency as a level between 21 and 29 ng/mL (2). 1. IOM ([place] of Medicine). 2010. Dietary reference intakes for calcium and D. [place]: The National Academies Press. 2. Angela MF, Manuelito MENDOZA, Gunjan GONZÁLES, et al. Evaluation, treatment, and prevention of vitamin D deficiency: an Endocrine Society clinical practice guideline. JCEM. 2010; 96(7):1911-30. FASTING Blood BLOOD SPECIMEN / Unknown 12/20/2019 10:05 AM MACHINE II CUTTER 12/20/2019 Narrative Resulting Agency Comment [facility] performed at: [facility] [address] [facility] [id number] Patience Chance MD LAB - CHEMISTRY ROBERTO SCOTT Performing Organization Address [facility] Co de Phone Number [facility] INSURANCE BILL [address] [place] [address] * CBC NO DIFFERENTIAL (12/20/2019 10:05 AM MACHINE II CUTTER) Only the most recent of2 resultswithin the time period is included. WBC 6.9 3.4 - 10.8 x10E3/uL [facility] INSURANCE BILL RBC 5.53 4.14 - 5.80 x10E6/uL [facility] INSURANCE BILL Hemoglobin 15.2 13.0 - 17.7 g/dL [facility] INSURANCE BILL Hematocrit 45.4 37.5 - 51.0 % [facility] INSURANCE BILL MCV 82 79 - 97 fL [facility] INSURANCE BILL MCH 27.5 26.6 - 33.0 pg [facility] INSURANCE BILL MCHC 33.5 31.5 - 35.7 g/dL [facility] INSURANCE BILL RDW 13.2 11.6 - 15.4 % [facility] INSURANCE BILL Platelet Count 274 150 - 450 x10E3/uL [facility] INSURANCE BILL nRBC NOT NEEDED [facility] INSURANCE BILL Comment: FASTING Ancillary determined the test is not needed. Blood BLOOD SPECIMEN / Unknown 12/20/2019 10:05 AM MACHINE II CUTTER 12/20/2019 Narrative Resulting Agency Comment Lab Testing performed [facility] [address] [facility] [id number] Patience Chance MD LAB - HEMATOLOGY ORD ERABLES [facility] INSURANCE BILL [address] [place] [address] * (ABNORMAL) COMPREHENSIVE METABOLIC PANEL (12/20/2019 10:05 AM MACHINE II CUTTER) Glucose 92 65 - 99 mg/dL [facility] INSURANCE BILL BUN 12 6 - 20 mg/dL [facility] INSURANCE BILL Creatinine 0.86 0.76 - 1.27 mg/dL [facility] INSURANCE BILL BUN/Creatinine Ratio 14 9 - 20 [facility] INSURANCE BILL Sodium 138 134 - 144 mmol/L [facility] INSURANCE BILL Potassium 4.7 3.5 - 5.2 mmol/L [facility] INSURANCE BILL Chloride 103 96 - 106 mmol/L [facility] INSURANCE BILL CO2 21 20 - 29 mmol/L [facility] INSURANCE BILL Calcium 10.0 8.7 - 10.2 mg/dL [facility] INSURANCE BILL Protein Total 7.6 6.0 - 8.5 g/dL [facility] INSURANCE BILL Albumin 4.9 4.1 - 5.2 g/dL [facility] INSURANCE BILL Globulin Total 2.7 1.5 - 4.5 g/dL [facility] INSURANCE BILL Albumin/Globulin Ratio 1.8 1.2 - 2.2 [facility] INSURANCE BILL Bilirubin Total 0.4 0.0 - 1.2 mg/dL [facility] INSURANCE BILL Alkaline Phosphatase 94 39 - 117 IU/L [facility] INSURANCE BILL AST 25 0 - 40 IU/L [facility] INSURANCE BILL ALT 45(H) 0 - 44 IU/L [facility] INSURANCE BILL Comment:FASTING Blood BLOOD SPECIMEN / Unknown 12/20/2019 10:05 AM MACHINE II CUTTER 12/20/2019 Narrative Resulting Agency Comment Lab Testing performed at: [facility] [employer] [facility] [phone] Patience Chance MD LAB - CHEMISTRY ROBERTO SCOTT Performing Organization Address [facility] de Phone Number [facility] INSURANCE BILL [address] [place] [address] * PROTEIN CREATININE RATIO URINE RANDOM PNL (12/20/2019 10:05 AM MACHINE II CUTTER) Only the most recent of4 resultswithin the time period is included. Creatinine Urine 175.1 Not Estab. mg/dL [facility] INSURANCE BILL Protein Urine 23.3 Not Estab. mg/dL [facility] INSURANCE BILL Protein/Creatin ine Ratio 133 0 - 200 mg/g creat [facility] INSURANCE BILL Comment:FASTING Urine URINE SPECIMEN OBTAINED BY CLEAN CATCH PROCEDURE / Unknown 12/20/2019 10:05 AM MACHINE II CUTTER 12/20/2019 Narrative Resulting Agency Comment Lab Testing performed at: [facility] [employer] [facility] [id number] Patience Chance MD LAB - URINE CHEMISTR Y ORDERABLES Performing Organization Address [facility] de Phone Number [facility] INSURANCE BILL [address] [place] [address] * PHOSPHORUS BLOOD (12/20/2019 10:05 AM MACHINE II CUTTER) Phosphorus 3.5 3.4 - 5.5 mg/dL [facility] INSURANCE BILL Comment:FASTING Blood BLOOD SPECIMEN / Unknown 12/20/2019 10:05 AM MACHINE II CUTTER 12/20/2019 Narrative Resulting Agency Comment Lab Testing performed at: [facility] [employer] [facility] [id number] Patience Chnace MD LAB - CHEMISTRY ROBERTO SCOTT Performing Organization Address City/[facility]/ZIP Co de Phone Number [facility] INSURANCE BILL [address] [place] [address] * IRON + TIBC PANEL (12/20/2019 10:05 AM MACHINE II CUTTER) Only the most recent of2 resultswithin the time period is included. TIBC 381 250 - 450 ug/dL [facility] INSURANCE BILL UIBC 300 111 - 343 ug/dL [facility] INSURANCE BILL Iron 81 38 - 169 ug/dL [facility] INSURANCE BILL Iron Saturation 21 15 - 55 % [facility] INSURANCE BILL Comment:FASTING Blood BLOOD SPECIMEN / Unknown 12/20/2019 10:05 AM MACHINE II CUTTER 12/20/2019 Narrative Resulting Agency Comment Lab Testing performed at: [employer] [place] [employer] [facility] [phone] Patience Chance MD LAB - CHEMISTRY ROBERTO SCOTT Performing Organization Address [facility] Co de Phone Number [facility] INSURANCE BILL [address] [place] [address] * (ABNORMAL) FERRITIN (12/20/2019 10:05 AM MACHINE II CUTTER) Only the most recent of2 resultswithin the time period is included. Ferritin 163(H) 16 - 124 ng/mL [facility] INSURANCE BILL Comment:FASTING Blood BLOOD SPECIMEN / Unknown 12/20/2019 10:05 AM MACHINE II CUTTER 12/20/2019 Narrative Resulting Agency Comment Lab Testing performed at: [employer] [place] [facility] [id number] Patience Chance MD LAB - CHEMISTRY ROBERTO SCOTT Performing Organization Address City/[facility] Co de Phone Number [facility] INSURANCE BILL [address] [place] [address] * (ABNORMAL) LIPID PROFILE (12/20/2019 10:05 AM MACHINE II CUTTER) Only the most recent of2 resultswithin the time period is included. Cholesterol 241(H) 100 - 169 mg/dL [facility] INSURANCE BILL Triglycerides 62 0 - 89 mg/dL [facility] INSURANCE BILL HDL Cholesterol 42 >39 mg/dL [facility] INSURANCE BILL VLDL Calculated 10 5 - 40 mg/dL [facility] INSURANCE BILL LDL Calculated 189(H) 0 - 109 mg/dL [facility] INSURANCE BILL Comment [facility] INSURANCE BILL Comment: Possible Familial Hypercholesterolemia. FH should be suspected in a patient less than 20 years of age when fasting LDL cholesterol is above 159 mg/dL or non-HDL cholesterol is above 189 mg/dL. A family history of high cholesterol and heart disease in 1st degree relatives should be collected. J Clin Lipidol 2011; 5:133-140. FASTING Blood BLOOD SPECIMEN / Unknown 12/20/2019 10:05 AM MACHINE II CUTTER 12/20/2019 Narrative Resulting Agency Comment Lab Testing performed at: [facility] [address] [facility] [id number] Patience Chance MD LAB - CHEMISTRY ROBERTO SCOTT [facility] INSURANCE BILL [address] [place] [address] * SKIN TEST PPD - POINT OF CARE (10/08/2018 3:20 PM CDT) Only the most recent of2 resultswithin the time period is included. PPD Other MISCELLANEOUS SAMPLE S / Unknown 10/08/2018 3:20 PM CDT Marcella Hazel APRN-DIRECTOR OF EXTENSION WORK LAB - POINT OF CARE ORDERABLES * RENAL FUNCTION PANEL (04/20/2018 10:58 AM CDT) Glucose 89 65 - 99 mg/dL [facility] INSURANCE BILL BUN 10 6 - 20 mg/dL [facility] INSURANCE BILL Creatinine 0.95 0.76 - 1.27 mg/dL [facility] INSURANCE BILL BUN/Creatinine Ratio 11 9 - 20 [facility] INSURANCE BILL Sodium 140 134 - 144 mmol/L [facility] INSURANCE BILL Potassium 4.7 3.5 - 5.2 mmol/L [facility] INSURANCE BILL Chloride 100 96 - 106 mmol/L [facility] INSURANCE BILL CO2 24 20 - 29 mmol/L [facility] INSURANCE BILL Calcium 10.0 8.7 - 10.2 mg/dL [facility] INSURANCE BILL Phosphorus 3.8 2.5 - 5.6 mg/dL [facility] INSURANCE BILL Albumin 5.0 3.5 - 5.5 g/dL [facility] INSURANCE BILL Comment:FASTING Blood BLOOD SPECIMEN / Unknown 04/20/2018 10:58 AM CDT 04/20/2018 Narrative Resulting Agency Comment [facility] [place] [address] [facility] [phone] Patience Chance MD LAB - CHEMISTRY ROBERTO SCOTT [facility] INSURANCE BILL [address] [place] [address] * ALT (04/20/2018 10:58 AM CDT) ALT 23 0 - 44 IU/L [facility] INSURANCE BILL Comment:FASTING Blood BLOOD SPECIMEN / Unknown 04/20/2018 10:58 AM CDT 04/20/2018 Narrative Resulting Agency Comment [facility] [place] [address] [facility] [phone] Patience Chance MD LAB - CHEMISTRY ROBERTO SCOTT Performing Organization Address City/[facility] & Hospital/[facility] Co de Phone Number [facility] INSURANCE BILL [address] [place] [address] * AST BLOOD (04/20/2018 10:58 AM CDT) AST 19 0 - 40 IU/L [facility] INSURANCE BILL Comment:FASTING Blood BLOOD SPECIMEN / Unknown 04/20/2018 10:58 AM CDT 04/20/2018 Narrative Resulting Agency Comment [facility] [address] [facility] [id number] Patience Chance MD LAB - CHEMISTRY ROBERTO SCOTT Performing Organization Address City/[facility] Co de Phone Number [facility] INSURANCE BILL [address] [place] [address] * LAB RESULTS ORDER (09/18/2017 5:58 PM CDT) Only the most recent of4 resultswithin the time period is included. Narrative 09/18/2017 5:58 PM CDT Ordered by an unspecified provider. Scanned Document LAB - THERAPEUTIC DR UG MONITORING ORDERABLES * IMAGING/RADIOLOGY/XRAY RESULTS ORDER (08/22/2016 8:06 PM CDT) Anatomical Region Laterality Modality Other Narrative 08/22/2016 8:06 PM CDT Ordered by an unspecified provider. Scanned Document IMAGING * CARDIAC RHYTHM STRIP ORDER (05/03/2016 6:05 PM CDT) Narrative 05/03/2016 6:05 PM CDT Ordered by an unspecified provider. Scanned Document CARDIAC SERVICES ORD ERABLES Care Teams Tie In Machine Operator Relationship Specialty Start Date End Date Jannet Srinivasan MD [address] [place] [address] [address] [place] [address] PCP - General Pediatrics 11/24/13
--- NOTE | 2024-03-24 13:22 | ED_ITS ---
HPI - General Adult General Chief complaint: Unspecified Stated complaint: numb stomach, toes, and fingers Time Seen by Provider: 03/24/24 10:11 History of Present Illness HPI narrative: Patient is a 24-year-old male who presents ER with numbness. He has pins and needle sensation to his hands bilaterally as well as to his abdomen and back from the underside of the ribcage and a goes down to his feet bilaterally. It spares his groin and rectum. No difficulty with urination defecation. No physical weakness. He has had some intermittent numbness in a foot or arm intermittently over the last year but nothing that has been like this. This has been constant for 3 days. No family history of autoimmune disease. No recent viral illness. Denies fevers or chills or sweats. He does take is up a lb and has had a 100 lb weight loss over the last year. He eats 2 cutie oranges in the morning, does not you lunch, and then has dinner consisting of protein and vegetables. He does not take any vitamin supplements. Related Data Allergies Allergy/AdvReac Type Severity Reaction Status Date / Time No Known Allergies Allergy Verified 03/24/24 09:38 Review of Systems 2 Review of Systems: All systems reviewed & are unremarkable except as noted in HPI and below Constitutional: Constitutional: Reports no additional constitutional complaints ENT: Reports system reviewed and no additional complaints, except as documented Cardiovascular: Cardiovascular: Reports no additional cardiovascular complaints Respiratory: Respiratory: Reports no additional respiratory complaints Gastrointestinal: Gastrointestinal: Reports no additional gastrointestinal complaints Musculoskeletal: Musculoskeletal: Reports no additional musculoskeletal complaints Neurologic: Reports system reviewed and no additional complaints, except as documented [facility] Past Medical History Medical History (Updated 03/24/24 @ 14:16 by Wandy Grider PA-C) Normal cardiac stress test (11/2023) Hyperlipidemia Hypertension Family History Family History (Updated 03/24/24 @ 14:15 by Wandy Grider PA-C) Father Alcoholism Acute myocardial infarction Grandparent Hypertension Heart problem Social History Social History Social History: Surrogate medical decision maker: Code status: Smoking status: Never smoker Smokeless tobacco user: chewing tobacco Second hand tobacco smoke exposure: Yes Alcohol intake: current Drinks per week: 1 Substance use: never Substance use type: does not use Do You Feel Safe in your Home?: Yes Lack of Transportation: No Lack of Food: Never True Current Housing: I Have Housing Concerned About Future Housing: No Difficulty Paying Gas/Electric Bills: No Difficulty Paying for Meds: No Currently Unemployed: No Education: Trade/Vocational Certificate Difficulty w/ Childcare or Family Care: No Spiritual care concerns: No Exam 2 Narrative: GENERAL: Well-appearing, well-nourished, and in no acute distress. HEAD: Normocephalic, atraumatic. EYES: PERRLA and EOMI. ENT: Mucous membranes moist. CHEST: Clear to auscultation. No respiratory distress. HEART: Regular rate and rhythm. Normal peripheral pulses. ABDOMEN: Soft, nontender, nondistended. EXTREMITIES: Normal range of motion. No edema. 5/5 strength and rate all joints lower and upper extremities. Or you SKIN: Warm, dry, no rash. NEURO: No focal deficits. Paresthesia but no actual anesthesia on testing. Alert and oriented x3. PSYCH: Normal mood and affect. Course Course Emergency Course: Abnormal CT. Concern for demyelinating disease in my opinion. Recommend admission for observation and MRI of the head and spine. Hospitalists agreeable. Patient verbalized understanding. Vital Signs Vital signs: Vital Signs Temperature 97.9 F 03/24/24 09:46 Pulse Rate 99 03/24/24 09:46 Respiratory Rate 15 03/24/24 09:46 Blood Pressure 152/84 H 03/24/24 09:46 Pulse Oximetry 100 03/24/24 09:46 Oxygen Delivery Room Air 03/24/24 09:46 Temperature 97.9 F 03/24/24 09:46 Pulse Rate 92 03/24/24 14:45 Respiratory Rate 20 03/24/24 14:45 Blood Pressure 120/70 03/24/24 14:45 Pulse Oximetry 94 03/24/24 14:45 Oxygen Delivery Room Air 03/24/24 09:46 Medical Decision Making Vital Signs Vital Signs: Vital Signs Temperature 97.9 F 03/24/24 09:46 Pulse Rate 99 03/24/24 09:46 Respiratory Rate 15 03/24/24 09:46 Blood Pressure 152/84 H 03/24/24 09:46 Pulse Oximetry 100 03/24/24 09:46 Oxygen Delivery Room Air 03/24/24 09:46 Temperature 97.9 F 03/24/24 09:46 Pulse Rate 92 03/24/24 14:45 Respiratory Rate 20 03/24/24 14:45 Blood Pressure 120/70 03/24/24 14:45 Pulse Oximetry 94 03/24/24 14:45 Oxygen Delivery Room Air 03/24/24 09:46 Lab Data 03/24/24 10:50 03/24/24 10:50 Labs: Lab Results 03/24/24 Range/Units 10:50 WBC 4.2 L (4.5-10.0) K/mm3 RBC 4.98 (4.6-6.20) M/mm3 Hgb 14.3 (14.0-18.0) g/dL Hct 41.4 L (42.0-52.0) % MCV 83.1 (80-100) fl MCH 28.7 (26-34) pg MCHC 34.5 (32-36) g/dl RDW 13.0 (11.5-14.5) % Plt Count 329 (150-375) k/mm3 MPV 9.7 (7.4-10.4) fl Immature Gran % (Auto) 0.2 (0-0.5) % Neut % (Auto) 51.1 (45.5-73.1) % Lymph % (Auto) 39.5 (18.3-44.2) % [place] % (Auto) 7.7 (2.6-8.5) % Eos % (Auto) 1.0 (0-4.4) % Baso % (Auto) 0.5 (0.2-1.2) % Lymph # (Auto) 1.65 (0.9-3.2) K/mm3 [place] # (Auto) 0.3 (0.1-0.6) K/mm3 Eos # (Auto) 0.0 (0-0.3) K/mm3 Baso # (Auto) 0.0 (0.0-0.1) K/mm3 Abs Immat Gran (auto) 0.01 (0.00-0.031) K/mm3 Absolute Neuts (auto) 2.1 (1.3-6.7) K/mm3 Absolute Nucleated RBC 0.000 (0.0-0.012) K/mm3 Nucleated RBC % 0.0 (0.0-0.2) % Sodium 140 (137-145) mmol/L Potassium 3.7 (3.4-5.0) mmol/L Chloride 104 (98-107) mmol/L Carbon Dioxide 20 L (22-30) mmol/L Anion Gap 16 H (4-12) mmol/L BUN 11 (9-20) mg/dL Creatinine 0.80 (0.7-1.3) mg/dL Estim Creat Clear Calc 136 ml/min Estimated GFR > 60 (59 - ) Glucose 88 (65-110) mg/dL Calcium 10.0 (8.4-10.2) mg/dL Phosphorus 3.1 (2.5-4.5) mg/dL Magnesium 1.9 (1.6-2.3) mg/dL Total Bilirubin 0.8 (0.2-1.3) mg/dL AST 23 (17-59) U/L ALT 30 (6-50) U/L Alkaline Phosphatase 77 (38-126) U/L Total Protein 8.0 (6.3-8.2) g/dL Albumin 4.9 (3.5-5.1) g/dL Vitamin B1 Pending Vitamin B6 Pending Vitamin B12 441.0 (239-931) pg/mL Vitamin D 25-Hydroxy 21.1 ng/mL Folate 4.8 (2.76->20) ng/mL TSH (Reflex) 0.430 L (0.465-4.68) uIU/mL Free T4 1.50 (0.78-2.19) ng/dL Total T3 1.49 (0.97-1.69) NG/ML Imaging Data Radiologist's impression: ITS Impressions Head CT 03/24/24 10:45 IMPRESSION: 1. Mild nonspecific cerebral white matter disease. The differential diagnosis includes premature chronic small vessel ischemic disease (especially if the patient has cardiovascular risk factors), demyelinating disease such as multiple sclerosis, drug abuse, vasculitis, or reactive astrocytosis (gliosis) secondary to nonspecific etiology. Discharge Plan Discharge Clinical Impression: Paresthesia, Abnormal CT of brain Patient Disposition: Still a Patient Condition: Stable
--- NOTE | 2024-03-24 13:30 | PM.IMHP ---
H&P: HPI History of Present Illness Date/Time: 03/24/24 13:30 Chief Complaint: Numbness of fingers, toes, and stomach. Narrative: This is a pleasant 24-year-old male with hypertension and hyperlipidemia who presented to the emergency department via private vehicle for evaluation of numbness in his fingers, toes, and stomach. The patient provides the following history. He gives a several day history of numbness in his fingertips and toes and sensations of pins and needles the bottom of his feet. He also has sensation changes over the trunk and with further questioning he reports intermittent paresthesias in the left upper extremity dating back many months though they had always been fleeting. Today he had difficulties gripping tools at work. He also endorses intermittent sensation changes on the trunk. He denies balance issues, falls, visual changes, difficulty speaking and swallowing, shortness of breath, muscle weakness, saddle anesthesia, urinary retention, and bowel incontinence. No recent vaccinations or illnesses. Of note, he has been on Zepbound for not quite a year and has lost right around 100 lb. He believes that he eats a well-balanced diet and he has no known history of vitamin deficiencies. In the ED: Blood pressure on arrival was 152/84 in the remainder of his vital signs were stable. Labs are significant for WBC count of 4.2, anion gap 16, carbon dioxide 20, glucose 88. Head CT showed mild nonspecific cerebral white matter disease. He is being admitted in this setting for further evaluation and neurology consultation. Review of Systems Review of Systems: 12 systems were reviewed and are negative except for as per HPI. [facility] Past Medical History Medical History Normal cardiac stress test (11/2023) Hyperlipidemia Hypertension Family History Family History Father Alcoholism Acute myocardial infarction Grandparent Hypertension Heart problem Social History Social History (Updated 03/24/24 @ 19:42 by Wandy Grider PA-C) Social History: Surrogate medical decision maker: Blossom Ken, mother. Code status: Full code. Smoking status: Never smoker Smokeless tobacco user: chewing tobacco Second hand tobacco smoke exposure: Yes Alcohol intake: current Drinks per week: 1 Substance use: never Substance use type: does not use Do You Feel Safe in your Home?: Yes Lack of Transportation: No Lack of Food: Never True Current Housing: I Have Housing Concerned About Future Housing: No Difficulty Paying Gas/Electric Bills: No Difficulty Paying for Meds: No Currently Unemployed: No Education: Trade/Vocational Certificate Difficulty w/ Childcare or Family Care: No Spiritual care concerns: No Meds Home Medications and Allergies Home Medications ?Medication ?Instructions ?Recorded ?Confirmed ?Type lisinopril 40 mg tablet 40 mg PO DAILY #90 tabs 02/15/24 03/24/24 Rx tirzepatide (weight loss) 12.5 12.5 mg (0.5 mL) subcut WEEKLY #2 03/17/24 03/24/24 Rx mg/0.5 mL subcutaneous pen mL injector (Zepbound) Allergies Allergy/AdvReac Type Severity Reaction Status Date / Time No Known Allergies Allergy Verified 03/24/24 09:38 Vital Signs Vital Signs - 24 hr 03/24/24 09:46 03/24/24 10:51 03/24/24 10:55 Temperature 97.9 F Pulse Rate 99 98 Respiratory Rate 15 20 18 Blood Pressure 152/84 H 138/69 Pulse Oximetry 100 100 100 Oxygen Delivery Room Air Exam Narrative: General: Well-developed, nontoxic-appearing male sitting up in bed in no acute distress. Weight: 85 kg. BMI: 125.4. HEENT: Wearing corrective lenses. PERRL, EOMI. Sclera anicteric. Oral mucosa moist. Oropharynx clear. Neck: Supple. No thyromegaly or bruits. Respiratory: Lungs are clear to auscultation bilaterally. Cardiovascular: Regular rate and rhythm with S1-S2. Gastrointestinal: Abdomen is soft, nontender, and nondistended with positive bowel sounds. Skin: Warm and dry. No rash or lesions on limited exam. Extremities: No cyanosis, clubbing, or edema. Radial and pedal pulses intact. Neurological: Alert and oriented. Cranial nerves 2-12 are grossly intact. Speech is clear. No facial asymmetry. No pronator drift. Strength 5/5 in upper and lower extremities. Subjective sensation changes in the hands, feet, and trunk. Psychiatric: Pleasant and cooperative with normal mood and affect. Judgment and insight intact. H&P: Results Labs Labs: Short CBC 03/24/24 Range/Units 10:50 WBC 4.2 L (4.5-10.0) K/mm3 Hgb 14.3 (14.0-18.0) g/dL Hct 41.4 L (42.0-52.0) % Plt Count 329 (150-375) k/mm3 BMP 03/24/24 10:50 Sodium 140 Potassium 3.7 Chloride 104 Carbon Dioxide 20 L BUN 11 Creatinine 0.80 Glucose 88 Calcium 10.0 Liver Function 03/24/24 Range/Units 10:50 Total Bilirubin 0.8 (0.2-1.3) mg/dL AST 23 (17-59) U/L ALT 30 (6-50) U/L Alkaline Phosphatase 77 (38-126) U/L Albumin 4.9 (3.5-5.1) g/dL Impressions Head CT 03/24/24 10:45 IMPRESSION: 1. Mild nonspecific cerebral white matter disease. The differential diagnosis includes premature chronic small vessel ischemic disease (especially if the patient has cardiovascular risk factors), demyelinating disease such as multiple sclerosis, drug abuse, vasculitis, or reactive astrocytosis (gliosis) secondary to nonspecific etiology. Assessment and Plan Assessment and plan (1) Paresthesia: Code(s): R20.2 - Paresthesia of skin Status: Acute (2) Abnormal CT of brain: Code(s): R90.89 - Other abnormal findings on diagnostic imaging of central nervous system Status: Acute (3) Hypertension: Code(s): I10 - Essential (primary) hypertension Status: Acute (4) Hyperlipidemia: Qualifiers: Hyperlipidemia type: unspecified Qualified Code(s): E78.5 - Hyperlipidemia, unspecified Code(s): E78.5 - Hyperlipidemia, unspecified Status: Acute Plan The patient presented to the emergency department for evaluation of paresthesias as detailed in HPI. Labs, imaging, EKG, and all reports were personally reviewed. Brain CT showed mild nonspecific cerebral white matter disease and concerns were for possible multiple sclerosis. MRI of the brain and spine have been ordered. Neurology has been consulted for their opinion. Check for vitamin deficiencies as he is on a GLP-1. Initial blood pressure was a bit elevated and will be monitored closely. His home medications will be reviewed and resumed as appropriate. Findings and treatment plan were discussed with the patient. Questions were solicited and answered to satisfaction. The patient's medical management will be taken over by the hospitalist team in a.m. Quality VTE Prophylaxis VTE prophylaxis: mechanical ordered If No VTE Prophylaxis Answer both mechanical and pharmacologic: Reason no pharmacologic proph: low risk/not indicated The patient has been admitted under observation status. Hospitalist MIPS Advance Care Plan I have confirmed that the patient's Advanced Care Plan is present, code status is documented, or surrogate decision maker is listed in patient medical record.: Yes Medication Reconciliation I have utilized all available resources to obtain, update and review the patients current medications (includes all prescriptions, OTC, herbals, cannabis, and nutritional supplements).: Yes
--- OUTSIDE RECORDS SUMMARY | 2024-03-24 13:40 | XMS_ITS | Clinical Summary ---
Author Organization [facility] Address [address] [place] [address] Care Team Providers Care Tie Loader Name Role Phone Jannet Srinivasan MD Primary Care Provider [phone] Source Comments [facility],non-owned Affiliates and Associated Physician Practices is amultiple site organization consisting of ambulatory clinics and hospital sitesin [place], [place], [place] and [place]. This disclosure is being madepursuant to the Care Everywhere program and may not contain all information available regarding this patient. Last updated 17.[facility] Allergies No known active allergies Medications * [...] Comments Blood Pressure 152/78 12/24/2019 2:14 PM LOAN [employer] Pulse 94 10/03/2018 5:06 PM CDT Temperature 36.9 C (98.4 F) 10/03/2018 5:06 PM CDT Respiratory Rate 16 10/03/2018 5:06 PM CDT Oxygen Saturation 99% 10/03/2018 5:06 PM CDT Inhaled Oxygen Concentration - - Weight 129.9 kg (286 lb 6 oz) 12/24/2019 2:14 PM [employer] Height 179.5 cm (5' 10.67 ) 12/24/2019 2:[address] Body Mass Index 40.32 12/24/2019 2:14 PM [employer]AN [employer] Plan of Treatment Health Maintenance Due Date [...] this topic Medical Devices Implanted Type Area Personal Loan Specialist Device Identifier Shelf Expiration Date Model / Serial / Lot Truespan Meniscal Repair System Implanted:Qty: 6 on 05/01/2016 by Gume Chahal MD at [facility] Right: Knee 02/04/2019 [id number] / / [id number] Care Teams Tie Loader Relationship Specialty Start Date End Date Jannet Srinivasan MD [facility] [address] [place] [address] PCP - General Pediatrics 11/24/13
--- OUTSIDE RECORDS SUMMARY | 2024-03-24 13:40 | XMS_ITS | Referral Summary ---
Author Organization [facility] Address [address] [place] [address] Care Team Providers Care Data Entry Representative Name Role Phone Jannet Srinivasan MD Primary Care Provider [phone] Source Comments [facility],non-owned Affiliates and Associated Physician Practices is amultiple site organization consisting of ambulatory clinics and hospital sitesin [place], [place], [place] and [place]. This disclosure is being madepursuant to the Care Everywhere program and may not contain all information available regarding this patient. 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 Pulse 94 10/03/2018 5:06 PM CDT Temperature 36.9 C (98.4 F) 10/03/2018 5:06 PM CDT Respiratory Rate 16 10/03/2018 5:06 PM CDT Oxygen Saturation 99% 10/03/2018 5:06 PM CDT Inhaled Oxygen Concentration - - Weight 129.9 kg (286 lb 6 oz) 12/24/2019 2:14 PM [employer]AT MACH[employer] Height 179.5 cm (5' 10.67 ) 12/24/2019 2:[address] Body Mass Index 40.32 12/24/2019 2:14 PM [employer]AT MACHINE [employer] Plan of Treatment Not on file Medical Devices Implanted Type Area Product Development Actuary Device Identifier Shelf Expiration Date Model / Serial / Lot Truespan Meniscal Repair System Implanted:Qty: 6 on 05/01/2016 by Gume Chahal MD at [facility] Right: Knee 02/04/2019 [id number] / / [id number] Administered Medications Care Teams Data Entry Representative Relationship Specialty Start Date End Date Jannet Srinivasan MD [address] [place] [address] [address] [place] [id number] PCP - General Pediatrics 11/24/13
--- OUTSIDE RECORDS SUMMARY | 2024-03-24 13:40 | XMS_ITS | Patient Health Summary ---
Author Organization [facility] [employer] Address [address] [place] [address] Care Team Providers Care Senior Qualitative Researcher Name Role Phone Jannet Srinivasan MD Primary Care Provider [phone] Note from [facility],non-owned Affiliates and Associated Physician Practices is amultiple site organization consisting of ambulatory clinics and hospital sitesin [place], [place], [place] and [place]. This disclosure is being madepursuant to the Care Everywhere program and may not contain all information available regarding this patient. Last updated 17.[facility] Allergies No known active allergies Medications * [...] Comments Blood Pressure 152/78 12/24/2019 2:14 PM AEGIS CONSOLE OPERATOR TRACK Pulse 94 10/03/2018 5:06 PM CDT Temperature 36.9 C (98.4 F) 10/03/2018 5:06 PM CDT Respiratory Rate 16 10/03/2018 5:06 PM CDT Oxygen Saturation 99% 10/03/2018 5:06 PM CDT Inhaled Oxygen Concentration - - Weight 129.9 kg (286 lb 6 oz) 12/24/2019 2:14 PM AEGIS CONSOLE OPERATOR TRACK Height 179.5 cm (5' 10.67 ) 12/24/2019 2:[address] Body Mass Index 40.32 12/24/2019 2:14 PM AEGIS CONSOLE OPERATOR TRACK Medical Devices Implanted Type Area Process Development Chemist Device Identifier Shelf Expiration Date Model / Serial / Lot Truespan Meniscal Repair System Implanted:Qty: 6 on 05/01/2016 by Gume Chahal MD at [facility] Right: Knee 02/04/2019 [id number] / / [id number] Procedures * ECHO CONSULT - PEDIATRIC(Performed 12/24/2019) [...] ECHO CONSULT - PEDIATRIC (12/24/2019 1:33 PM AEGIS CONSOLE OPERATOR TRACK) Only the most recent of4 resultswithin the time period is included. 12/24/2019 1:33 PM AEGIS CONSOLE OPERATOR TRACK Narrative Procedure Note Kaz Lebron, [facility] - 12/24/2019 [address] [place] [address] Fax Non-Congenital Transthoracic Report Pat.Name: GIFTY CRESENCIO Max Pat.ID: [id number] .Date: 12/24/2019 Refer.: PHOEBE KING Exam Time: 1:33:00 PM Study Type:Non-Congenital TTE Height: 182cm Weight: 131.1kg BSA: 2.48 m2 Age: 2 2000,19Y Sex: MALE Sonogrphr: Mikael Lynch RDCS Pat. Stat.:Outpatient CPT - 4: 45998 Reason for Study: Essential hypertesion History / Clinical: TTE Procedures: 2D Non-congenital, Doppler Complete, Color Flow Race: 1 Visit ID: [id number] SUMMARY: Impression: Poor acoustic windows Mild concentric [...] Wade MD Patience Chance MD ECHO ORDERABLES [facility] [address] [place] [address] * URINALYSIS MICROSCOPIC ONLY REFLEXED (12/20/2019 10:05 AM AEGIS CONSOLE OPERATOR TRACK) Only the most recent of2 resultswithin the [...] is not needed. 12/20/2019 10:0 5 AM AEGIS CONSOLE OPERATOR TRACK 12/20/2019 Narrative Resulting Agency Comment Lab Testing performed at: [facility] [address] [id number] Patience Chance MD LAB - URINALYSIS ORD ERABLES Performing Organization Address City/[facility] Co de Phone Number [facility] INSURANCE BILL [address] [place] [address] * (ABNORMAL) URINALYSIS W/MICROSCOPIC NO CULTURE (12/20/2019 10:05 AM AEGIS CONSOLE OPERATOR TRACK) Only the most recent of4 resultswithin the time period is included. Specific [place] UA 1.023 1.005 - 1.030 [facility] INSURANCE [...] CATCH PROCEDURE / Unknown 12/20/2019 10:05 AM AEGIS CONSOLE OPERATOR TRACK 12/20/2019 Narrative Resulting Agency Comment Lab Testing performed at: [facility] [address] [id number] Patience Chance MD LAB - URINALYSIS ORD ERABLES Performing Organization Address City/State/[facility] de Phone Number [facility] INSURANCE BILL [address] [place] [address] * CYSTATIN C LEVEL (12/20/2019 10:05 AM AEGIS CONSOLE OPERATOR TRACK) Only the most recent of2 resultswithin the time period is included. Cystatin C 0.84 0.62 - 1.16 mg/L [facility] INSURANCE BILL Comment:FASTING Blood BLOOD SPECIMEN / Unknown 12/20/2019 10:05 AM AEGIS CONSOLE OPERATOR TRACK 12/20/2019 Narrative Resulting Agency Comment Lab Testing performed at: [address] [id number] Patience Chance MD LAB - CHEMISTRY ROBERTO SCOTT Performing Organization Address [facility] de Phone Number [facility] INSURANCE BILL [address] [place] [address] * URIC ACID BLOOD (12/20/2019 10:05 AM AEGIS CONSOLE OPERATOR TRACK) Uric Acid 8.3 3.7 - 8.6 mg/dL [facility] INSURANCE BILL Comment: Therapeutic target for gout patients: <6.0 FASTING Blood BLOOD SPECIMEN / Unknown 12/20/2019 10:05 AM AEGIS CONSOLE OPERATOR TRACK 12/20/2019 Narrative Resulting Agency Comment [facility]: [facility] [employer] [facility] [id number] Patience Chance MD LAB - CHEMISTRY ROBERTO SCOTT Performing Organization Address [facility] de Phone Number [facility] INSURANCE BILL [address] [place] [address] * PTH INTACT (12/20/2019 10:05 AM AEGIS CONSOLE OPERATOR TRACK) Only the most recent of2 resultswithin the time period is included. PTH Intact 25 15 - 65 pg/mL [facility] INSURANCE BILL Comment:FASTING Blood BLOOD SPECIMEN / Unknown 12/20/2019 10:05 AM AEGIS CONSOLE OPERATOR TRACK 12/20/2019 Narrative Resulting Agency Comment Lab Testing performed at: [facility] [employer] [facility] [id number] Patience Chance MD LAB - CHEMISTRY ROBERTO SCOTT Performing Organization Address [facility] de Phone Number [facility] [address] [place] [address] * (ABNORMAL) VITAMIN D (25-HYDROXY) (12/20/2019 10:05 AM AEGIS CONSOLE OPERATOR TRACK) Only the most recent of2 resultswithin the time period is included. Vitamin D, 25 Hydroxy 20.3(L) 30.0 - 100.0 ng/mL [facility] INSURANCE BILL Comment: Vitamin D deficiency has been defined by the Coleman of Medicine and an Endocrine Society practice guideline as a level of serum 25-OH vitamin D less than 20 ng/mL (1,2). The Endocrine Society went on to further define vitamin D insufficiency as a level between 21 and 29 ng/mL (2). 1. IOM (Coleman of Medicine). 2010. Dietary reference intakes for calcium and D. [place]: The National Academies Press. 2. Angela MF, Manuelito MENDOZA, Gunjan GONZÁLES, et al. Evaluation, treatment, and prevention of vitamin D deficiency: an Endocrine Society clinical practice guideline. JCEM. 2010; 96(7):1911-30. FASTING Blood BLOOD SPECIMEN / Unknown 12/20/2019 10:05 AM AEGIS CONSOLE OPERATOR TRACK 12/20/2019 Narrative Resulting Agency Comment [facility]: [facility] [address] [facility] [id number] Patience Chance MD LAB - CHEMISTRY ROBERTO SCOTT Performing Organization Address [facility] Co de Phone Number [facility] INSURANCE BILL [address] [place] [address] * CBC NO DIFFERENTIAL (12/20/2019 10:05 AM AEGIS CONSOLE OPERATOR TRACK) Only the most recent of2 resultswithin the [...] BLOOD SPECIMEN / Unknown 12/20/2019 10:05 AM AEGIS CONSOLE OPERATOR TRACK 12/20/2019 Narrative Resulting Agency Comment [facility]: [facility] [address] [facility] [id number] Patience Chance MD LAB - HEMATOLOGY ORD ERABLES [facility] INSURANCE BILL [address] [place] [address] * (ABNORMAL) COMPREHENSIVE METABOLIC PANEL (12/20/2019 10:05 AM AEGIS CONSOLE OPERATOR TRACK) Glucose 92 65 - 99 mg/dL [facility] [...] BLOOD SPECIMEN / Unknown 12/20/2019 10:05 AM AEGIS CONSOLE OPERATOR TRACK 12/20/2019 Narrative Resulting Agency Comment Lab Testing performed at: [facility] [employer] [facility] [id number] Patience Chance MD LAB - CHEMISTRY ROBERTO SCOTT Performing Organization Address [facility] de Phone Number [facility] INSURANCE BILL [address] [place] [address] * PROTEIN CREATININE RATIO URINE RANDOM PNL (12/20/2019 10:05 AM AEGIS CONSOLE OPERATOR TRACK) Only the most recent of4 resultswithin the time period is included. Creatinine Urine 175.1 Not Estab. mg/dL [facility] INSURANCE BILL Protein Urine 23.3 Not Estab. mg/dL [facility] INSURANCE BILL Protein/Creatin ine Ratio 133 0 - 200 mg/g creat [facility] INSURANCE BILL Comment:FASTING Urine URINE SPECIMEN OBTAINED BY CLEAN CATCH PROCEDURE / Unknown 12/20/2019 10:05 AM AEGIS CONSOLE OPERATOR TRACK 12/20/2019 Narrative Resulting Agency Comment Lab Testing performed at: [facility] [employer] [facility] [id number] Patience Chance MD LAB - URINE CHEMISTR Y ORDERABLES Performing Organization Address [facility] de Phone Number [facility] INSURANCE BILL [address] [place] [address] * PHOSPHORUS BLOOD (12/20/2019 10:05 AM AEGIS CONSOLE OPERATOR TRACK) Phosphorus 3.5 3.4 - 5.5 mg/dL [facility] INSURANCE BILL Comment:FASTING Blood BLOOD SPECIMEN / Unknown 12/20/2019 10:05 AM AEGIS CONSOLE OPERATOR TRACK 12/20/2019 Narrative Resulting Agency Comment Lab Testing performed at: [facility] [employer] [facility] [phone] Patience Chance MD LAB - CHEMISTRY ROBERTO SCOTT Performing Organization Address City/[facility]/ZIP Co de Phone Number [facility] INSURANCE BILL [address] [place] [address] * IRON + TIBC PANEL (12/20/2019 10:05 AM AEGIS CONSOLE OPERATOR TRACK) Only the most recent of2 resultswithin the time period is included. TIBC 381 250 - 450 ug/dL [facility] INSURANCE BILL UIBC 300 111 - 343 ug/dL [facility] INSURANCE BILL Iron 81 38 - 169 ug/dL [facility] INSURANCE BILL Iron Saturation 21 15 - 55 % [facility] INSURANCE BILL Comment:FASTING Blood BLOOD SPECIMEN / Unknown 12/20/2019 10:05 AM AEGIS CONSOLE OPERATOR TRACK 12/20/2019 Narrative Resulting Agency Comment Lab Testing performed at: [employer] [place] [employer] [facility] [id number] Patience Chance MD LAB - CHEMISTRY ROBERTO SCOTT Performing Organization Address [facility] Co de Phone Number [facility] INSURANCE BILL [address] [place] [address] * (ABNORMAL) FERRITIN (12/20/2019 10:05 AM AEGIS CONSOLE OPERATOR TRACK) Only the most recent of2 resultswithin the time period is included. Ferritin 163(H) 16 - 124 ng/mL [facility] INSURANCE BILL Comment:FASTING Blood BLOOD SPECIMEN / Unknown 12/20/2019 10:05 AM AEGIS CONSOLE OPERATOR TRACK 12/20/2019 Narrative Resulting Agency Comment Lab Testing performed at: [employer] [facility] [id number] Patience Chance MD LAB - CHEMISTRY ROBERTO SCOTT Performing Organization Address City/[facility] Co de Phone Number [facility] INSURANCE BILL [address] [place] [address] * (ABNORMAL) LIPID PROFILE (12/20/2019 10:05 AM AEGIS CONSOLE OPERATOR TRACK) Only the most recent of2 resultswithin the [...] BLOOD SPECIMEN / Unknown 12/20/2019 10:05 AM AEGIS CONSOLE OPERATOR TRACK 12/20/2019 Narrative Resulting Agency Comment Lab Testing performed at: [facility] [address] [facility] [id number] Patience Chance MD LAB - CHEMISTRY ROBERTO SCOTT [facility] INSURANCE BILL [address] [place] [address] * SKIN TEST PPD - POINT OF CARE (10/08/2018 3:20 PM CDT) Only the most recent of2 resultswithin the time period is included. PPD Other MISCELLANEOUS SAMPLE S / Unknown 10/08/2018 3:20 PM CDT Marcella Hazel APRN-STOCK OR DELIVERY CLERK LAB - POINT OF CARE ORDERABLES * [...] CDT 04/20/2018 Narrative Resulting Agency Comment [facility] [address] [facility] [id number] Patience Chance MD LAB - CHEMISTRY ROBERTO SCOTT [facility] INSURANCE BILL [address] [place] [address] * ALT (04/20/2018 10:58 AM CDT) ALT 23 0 - 44 IU/L [facility] INSURANCE BILL Comment:FASTING Blood BLOOD SPECIMEN / Unknown 04/20/2018 10:58 AM CDT 04/20/2018 Narrative Resulting Agency Comment [facility] [address] [facility] [phone] Patience Chance MD LAB - CHEMISTRY ROBERTO SCOTT Performing Organization Address City/[facility] Co de Phone Number [facility] INSURANCE BILL [address] [place] [address] * AST BLOOD (04/20/2018 10:58 AM CDT) AST 19 0 - 40 IU/L [facility] INSURANCE BILL Comment:FASTING Blood BLOOD SPECIMEN / Unknown 04/20/2018 10:58 AM CDT 04/20/2018 Narrative Resulting Agency Comment [facility] [address] [facility] [id number] Patience Chance MD LAB - CHEMISTRY ROBERTO SCOTT Performing Organization Address City/[facility] Co de Phone Number [facility] INSURANCE BILL [address] [place] [address] * LAB RESULTS ORDER (09/18/2017 5:58 PM [...] Document CARDIAC SERVICES ORD ERABLES Care Teams Senior Qualitative Researcher Relationship Specialty Start Date End Date Jannet Srinivasan MD [address] [place] [address] [address] [place] [address] PCP - General Pediatrics 11/24/13
[2024-03-24 14:21] LABS: Total Triiodothyronine (T3) 1.49 NG/ML (0.97-1.69)
[2024-03-24 14:45] VITALS: BP 120/70; PULSE 92; RESP 20; O2SAT 94
[2024-03-24 17:51] VITALS: BMI 25.4
--- NOTE | 2024-03-24 17:53 | PC.NURSE ---
This patient, Eh Ken, was admitted to Medical Room 349-01. Patient/family oriented to hospital policies and general routines including ID bracelet, bed and alarms, visiting hours, pain management, procedures, bathroom and other care routines, personal items, smoking policy, room service/diet, and visiting hours. Information on how to activate the Rapid Response Team has been discussed. Patient/Family are encouraged to report perceived risks to care and to ask questions if they do not understand what they are told or what they should do.
--- OUTSIDE RECORDS SUMMARY | 2024-03-24 18:46 | XMS_ITS | Referral Summary ---
Author Organization [facility] [employer] Address [address] [place] [address] Care Team Providers Care Rv Body Mechanic Name Role Phone Jannet Srinivasan MD Primary Care Provider [phone] Source Comments [facility] [employer],non-owned Affiliates and Associated Physician Practices is amultiple site organization consisting of ambulatory clinics and hospital sitesin [place], [place], [place] and [place]. This disclosure is being madepursuant to the Care Everywhere program and may not contain all information available regarding this patient. Last updated 17.[facility] Allergies No known active allergies Medications * [...] Comments Blood Pressure 152/78 12/24/2019 2:14 PM FIXED WING AIRCRAFT FLIGHT ENGINEER Pulse 94 10/03/2018 5:06 PM CDT Temperature 36.9 C (98.4 F) 10/03/2018 5:06 PM CDT Respiratory Rate 16 10/03/2018 5:06 PM CDT Oxygen Saturation 99% 10/03/2018 5:06 PM CDT Inhaled Oxygen Concentration - - Weight 129.9 kg (286 lb 6 oz) 12/24/2019 2:14 PM FIXED WING AIRCRAFT FLIGHT ENGINEER Height 179.5 cm (5' 10.67 ) 12/24/2019 2:[address] Body Mass Index 40.32 12/24/2019 2:14 PM FIXED WING AIRCRAFT FLIGHT ENGINEER Plan of Treatment Not on file Medical Devices Implanted Type Area Round Boner Device Identifier Shelf Expiration Date Model / Serial / Lot Truespan Meniscal Repair System Implanted:Qty: 6 on 05/01/2016 by Gume Chahal MD at [facility] Right: Knee 02/04/2019 [id number] / / [id number] Administered Medications Care Teams Rv Body Mechanic Relationship Specialty Start Date End Date Jannet Srinivasan MD [address] [place] [address] [address] [place] [id number] PCP - General Pediatrics 11/24/13
--- OUTSIDE RECORDS SUMMARY | 2024-03-24 18:46 | XMS_ITS | Clinical Summary ---
Author Organization [facility] [employer] Address [address] [facility] [place] [address] Care Team Providers Care Rn Stars Name Role Phone Jannet Srinivasan MD Primary Care Provider [phone] Source Comments [facility] [employer],non-owned Affiliates and Associated Physician Practices is amultiple site organization consisting of ambulatory clinics and hospital sitesin [place], [place], [place] and [place]. This disclosure is being madepursuant to the Care Everywhere program and may not contain all information available regarding this patient. Last updated 17.[facility] Allergies No known active allergies Medications * [...] Comments Blood Pressure 152/78 12/24/2019 2:14 PM BOBBIN FIXER Pulse 94 10/03/2018 5:06 PM CDT Temperature 36.9 C (98.4 F) 10/03/2018 5:06 PM CDT Respiratory Rate 16 10/03/2018 5:06 PM CDT Oxygen Saturation 99% 10/03/2018 5:06 PM CDT Inhaled Oxygen Concentration - - Weight 129.9 kg (286 lb 6 oz) 12/24/2019 2:14 PM BOBBIN FIXER Height 179.5 cm (5' 10.67 ) 12/24/2019 2:[address] Body Mass Index 40.32 12/24/2019 2:14 PM BOBBIN FIXER Plan of Treatment Health Maintenance Due Date [...] this topic Medical Devices Implanted Type Area Technician Support Association Device Identifier Shelf Expiration Date Model / Serial / Lot Truespan Meniscal Repair System Implanted:Qty: 6 on 05/01/2016 by Gume Chahal MD at [facility] Right: Knee 02/04/2019 [id number] / / [id number] Care Teams Rn Stars Relationship Specialty Start Date End Date Jannet Srinivasan MD [facility] [address] [place] [address] PCP - General Pediatrics 11/24/13
--- OUTSIDE RECORDS SUMMARY | 2024-03-24 18:46 | XMS_ITS | Patient Health Summary ---
Author Organization [facility] Address [address] [place] [address] Care Team Providers Care Regenerator Operator Name Role Phone Jannet Srinivasan MD Primary Care Provider [phone] Note from [facility],non-owned Affiliates and Associated Physician Practices is amultiple site organization consisting of ambulatory clinics and hospital sitesin [place], [place], [place] and [place]. This disclosure is being madepursuant to the Care Everywhere program and may not contain all information available regarding this patient. Last updated 17.[facility] Allergies No known active [...] Comments Blood Pressure 152/78 12/24/2019 2:14 PM SYSTEM PROGRAMMER Pulse 94 10/03/2018 5:06 PM CDT Temperature 36.9 C (98.4 F) 10/03/2018 5:06 PM CDT Respiratory Rate 16 10/03/2018 5:06 PM CDT Oxygen Saturation 99% 10/03/2018 5:06 PM CDT Inhaled Oxygen Concentration - - Weight 129.9 kg (286 lb 6 oz) 12/24/2019 2:14 PM SYSTEM PROGRAMMER Height 179.5 cm (5' 10.67 ) 12/24/2019 2:[address] Body Mass Index 40.32 12/24/2019 2:14 PM SYSTEM PROGRAMMER Medical Devices Implanted Type Area Applications Development Consultant Device Identifier Shelf Expiration Date Model / Serial / Lot Truespan Meniscal Repair System Implanted:Qty: 6 on 05/01/2016 by Gume Chahal MD at [facility] Right: Knee 02/04/2019 [id number] / / [id number] Procedures * ECHO CONSULT - PEDIATRIC(Performed 12/24/2019) [...] ECHO CONSULT - PEDIATRIC (12/24/2019 1:33 PM SYSTEM PROGRAMMER) Only the most recent of4 resultswithin the time period is included. 12/24/2019 1:33 PM SYSTEM PROGRAMMER Narrative Procedure Note Kaz Lebron, USHAS - 12/24/2019 [address] [place] [address] Fax Non-Congenital Transthoracic Report Pat.Name: GIFTY CRESENCIO Max Pat.ID: [id number] .Date: 12/24/2019 Refer.: PHOEBE KING Exam Time: 1:33:00 PM Study Type:Non-Congenital TTE Height: 182cm Weight: 131.1kg BSA: 2.48 m2 Age: 2 2000,19Y Sex: MALE Sonogrphr: Mikael Lynch RDCS Pat. Stat.:Outpatient CPT - 4: 51896 Reason for Study: Essential hypertesion History / Clinical: TTE Procedures: 2D Non-congenital, Doppler Complete, Color Flow Race: 1 Visit ID: [id number] SUMMARY: Impression: Poor acoustic windows Mild concentric [...] Wade MD Patience Chance MD ECHO ORDERABLES [facility] [address] [place] [address] * URINALYSIS MICROSCOPIC ONLY REFLEXED (12/20/2019 10:05 AM SYSTEM PROGRAMMER) Only the most recent of2 resultswithin the [...] is not needed. 12/20/2019 10:0 5 AM SYSTEM PROGRAMMER 12/20/2019 Narrative Resulting Agency Comment Lab Testing performed at: [facility] [address] [id number] Patience Chance MD LAB - URINALYSIS ORD ERABLES Performing Organization Address City/[facility] Co de Phone Number [facility] INSURANCE BILL [address] [place] [address] * (ABNORMAL) URINALYSIS W/MICROSCOPIC NO CULTURE (12/20/2019 10:05 AM SYSTEM PROGRAMMER) Only the most recent of4 resultswithin the time period is included. Specific Nicholson UA 1.023 1.005 - 1.030 [facility] INSURANCE [...] CATCH PROCEDURE / Unknown 12/20/2019 10:05 AM SYSTEM PROGRAMMER 12/20/2019 Narrative Resulting Agency Comment Lab Testing performed at: [facility] [address] [id number] Patience Chance MD LAB - URINALYSIS ORD ERABLES Performing Organization Address City/State/[facility] de Phone Number [facility] INSURANCE BILL [address] [place] [address] * CYSTATIN C LEVEL (12/20/2019 10:05 AM SYSTEM PROGRAMMER) Only the most recent of2 resultswithin the time period is included. Cystatin C 0.84 0.62 - 1.16 mg/L [facility] INSURANCE BILL Comment:FASTING Blood BLOOD SPECIMEN / Unknown 12/20/2019 10:05 AM SYSTEM PROGRAMMER 12/20/2019 Narrative Resulting Agency Comment Lab Testing performed at: [address] [id number] Patience Chance MD LAB - CHEMISTRY ROBERTO SCOTT Performing Organization Address [facility] de Phone Number [facility] INSURANCE BILL [address] [place] [address] * URIC ACID BLOOD (12/20/2019 10:05 AM SYSTEM PROGRAMMER) Uric Acid 8.3 3.7 - 8.6 mg/dL [facility] INSURANCE BILL Comment: Therapeutic target for gout patients: <6.0 FASTING Blood BLOOD SPECIMEN / Unknown 12/20/2019 10:05 AM SYSTEM PROGRAMMER 12/20/2019 Narrative Resulting Agency Comment Lab Testing performed at: [facility] [employer] [facility] [phone] Patience Chance MD LAB - CHEMISTRY ROBERTO SCOTT Performing Organization Address [facility] de Phone Number [facility] INSURANCE BILL [address] [place] [address] * PTH INTACT (12/20/2019 10:05 AM SYSTEM PROGRAMMER) Only the most recent of2 resultswithin the time period is included. PTH Intact 25 15 - 65 pg/mL [facility] INSURANCE BILL Comment:FASTING Blood BLOOD SPECIMEN / Unknown 12/20/2019 10:05 AM SYSTEM PROGRAMMER 12/20/2019 Narrative Resulting Agency Comment Lab Testing performed at: [facility] [employer] [facility] [id number] Patience Chance MD LAB - CHEMISTRY ROBERTO SCOTT Performing Organization Address [facility] de Phone Number [facility] [address] [place] [address] * (ABNORMAL) VITAMIN D (25-HYDROXY) (12/20/2019 10:05 AM SYSTEM PROGRAMMER) Only the most recent of2 resultswithin the time period is included. Vitamin D, 25 Hydroxy 20.3(L) 30.0 - 100.0 ng/mL [facility] INSURANCE BILL Comment: Vitamin D deficiency has been defined by the [place] of Medicine and an Endocrine Society practice guideline as a level of serum 25-OH vitamin D less than 20 ng/mL (1,2). The Endocrine Society went on to further define vitamin D insufficiency as a level between 21 and 29 ng/mL (2). 1. IOM ([place] of Medicine). 2010. Dietary reference intakes for calcium and D. [place]: The National Academies Press. 2. Angela MF, Manuelito MENDOZA, Gunjan GONZÁLES, et al. Evaluation, treatment, and prevention of vitamin D deficiency: an Endocrine Society clinical practice guideline. JCEM. 2010; 96(7):1911-30. FASTING Blood BLOOD SPECIMEN / Unknown 12/20/2019 10:05 AM SYSTEM PROGRAMMER 12/20/2019 Narrative Resulting Agency Comment [facility] performed at: [facility] [address] [facility] [id number] Patience Chance MD LAB - CHEMISTRY ROBERTO SCOTT Performing Organization Address [facility] Co de Phone Number [facility] INSURANCE BILL [address] [place] [address] * CBC NO DIFFERENTIAL (12/20/2019 10:05 AM SYSTEM PROGRAMMER) Only the most recent of2 resultswithin the [...] BLOOD SPECIMEN / Unknown 12/20/2019 10:05 AM SYSTEM PROGRAMMER 12/20/2019 Narrative Resulting Agency Comment Lab Testing performed at: [facility] [address] [facility] [id number] Patience Chance MD LAB - HEMATOLOGY ORD ERABLES [facility] INSURANCE BILL [address] [place] [address] * (ABNORMAL) COMPREHENSIVE METABOLIC PANEL (12/20/2019 10:05 AM SYSTEM PROGRAMMER) Glucose 92 65 - 99 mg/dL [facility] [...] BLOOD SPECIMEN / Unknown 12/20/2019 10:05 AM SYSTEM PROGRAMMER 12/20/2019 Narrative Resulting Agency Comment Lab Testing performed at: [facility] [employer] [facility] [phone] Patience Chance MD LAB - CHEMISTRY ROBERTO SCOTT Performing Organization Address [facility] de Phone Number [facility] INSURANCE BILL [address] [place] [address] * PROTEIN CREATININE RATIO URINE RANDOM PNL (12/20/2019 10:05 AM SYSTEM PROGRAMMER) Only the most recent of4 resultswithin the time period is included. Creatinine Urine 175.1 Not Estab. mg/dL [facility] INSURANCE BILL Protein Urine 23.3 Not Estab. mg/dL [facility] INSURANCE BILL Protein/Creatin ine Ratio 133 0 - 200 mg/g creat [facility] INSURANCE BILL Comment:FASTING Urine URINE SPECIMEN OBTAINED BY CLEAN CATCH PROCEDURE / Unknown 12/20/2019 10:05 AM SYSTEM PROGRAMMER 12/20/2019 Narrative Resulting Agency Comment Lab Testing performed at: [facility] [employer] [facility] [phone] Patience Chance MD LAB - URINE CHEMISTR Y ORDERABLES Performing Organization Address [facility] de Phone Number [facility] INSURANCE BILL [address] [place] [address] * PHOSPHORUS BLOOD (12/20/2019 10:05 AM SYSTEM PROGRAMMER) Phosphorus 3.5 3.4 - 5.5 mg/dL [facility] INSURANCE BILL Comment:FASTING Blood BLOOD SPECIMEN / Unknown 12/20/2019 10:05 AM SYSTEM PROGRAMMER 12/20/2019 Narrative Resulting Agency Comment Lab Testing performed at: [facility] [employer] [facility] [id number] Patience Chance MD LAB - CHEMISTRY ROBERTO SCOTT Performing Organization Address City/[facility]/ZIP Co de Phone Number [facility] INSURANCE BILL [address] [place] [address] * IRON + TIBC PANEL (12/20/2019 10:05 AM SYSTEM PROGRAMMER) Only the most recent of2 resultswithin the time period is included. TIBC 381 250 - 450 ug/dL [facility] INSURANCE BILL UIBC 300 111 - 343 ug/dL [facility] INSURANCE BILL Iron 81 38 - 169 ug/dL [facility] INSURANCE BILL Iron Saturation 21 15 - 55 % [facility] INSURANCE BILL Comment:FASTING Blood BLOOD SPECIMEN / Unknown 12/20/2019 10:05 AM SYSTEM PROGRAMMER 12/20/2019 Narrative Resulting Agency Comment Lab Testing performed at: [facility] [place] [employer] [facility] [id number] Patience Chance MD LAB - CHEMISTRY ROBERTO SCOTT Performing Organization Address [facility] Co de Phone Number [facility] INSURANCE BILL [address] [place] [address] * (ABNORMAL) FERRITIN (12/20/2019 10:05 AM SYSTEM PROGRAMMER) Only the most recent of2 resultswithin the time period is included. Ferritin 163(H) 16 - 124 ng/mL [facility] INSURANCE BILL Comment:FASTING Blood BLOOD SPECIMEN / Unknown 12/20/2019 10:05 AM SYSTEM PROGRAMMER 12/20/2019 Narrative Resulting Agency Comment Lab Testing performed at: [facility] [id number] Patience Chance MD LAB - CHEMISTRY ROBERTO SCOTT Performing Organization Address City/[facility] Co de Phone Number [facility] INSURANCE BILL [address] [place] [address] * (ABNORMAL) LIPID PROFILE (12/20/2019 10:05 AM SYSTEM PROGRAMMER) Only the most recent of2 resultswithin the [...] BLOOD SPECIMEN / Unknown 12/20/2019 10:05 AM SYSTEM PROGRAMMER 12/20/2019 Narrative Resulting Agency Comment Lab Testing performed at: [facility] [address] [facility] [id number] Patience Chance MD LAB - CHEMISTRY ROBERTO SCOTT [facility] INSURANCE BILL [address] [place] [address] * SKIN TEST PPD - POINT OF CARE (10/08/2018 3:20 PM CDT) Only the most recent of2 resultswithin the time period is included. PPD Other MISCELLANEOUS SAMPLE S / Unknown 10/08/2018 3:20 PM CDT Marcella Hazel APRN-BUSINESS PROCESS ANALYST LAB - POINT OF CARE ORDERABLES * [...] CDT 04/20/2018 Narrative Resulting Agency Comment [facility] [address] [facility] [phone] Patience Chance MD LAB - CHEMISTRY ROBERTO SCOTT [facility] INSURANCE BILL [address] [place] [address] * ALT (04/20/2018 10:58 AM CDT) ALT 23 0 - 44 IU/L [facility] INSURANCE BILL Comment:FASTING Blood BLOOD SPECIMEN / Unknown 04/20/2018 10:58 AM CDT 04/20/2018 Narrative Resulting Agency Comment [facility] [address] [facility] [phone] Patience Chance MD LAB - CHEMISTRY ROBERTO SCOTT Performing Organization Address City/[facility] Co de Phone Number [facility] INSURANCE BILL [address] [place] [address] * AST BLOOD (04/20/2018 10:58 AM CDT) AST 19 0 - 40 IU/L [facility] INSURANCE BILL Comment:FASTING Blood BLOOD SPECIMEN / Unknown 04/20/2018 10:58 AM CDT 04/20/2018 Narrative Resulting Agency Comment [facility] [address] [facility] [phone] Patience Chance MD LAB - CHEMISTRY ROBERTO SCOTT Performing Organization Address City/[facility] Co de Phone Number [facility] INSURANCE BILL [address] [place] [address] * LAB RESULTS ORDER (09/18/2017 5:58 PM [...] Document CARDIAC SERVICES ORD ERABLES Care Teams Regenerator Operator Relationship Specialty Start Date End Date Jannet Srinivasan MD [address] [place] [address] [address] [place] [address] PCP - General Pediatrics 11/24/13
[2024-03-24 20:00] VITALS: PULSE 73
[2024-03-24 20:06] VITALS: BP 134/71; PULSE 84; RESP 20; TEMP 36.1; O2SAT 100
[2024-03-25] VITALS (8 sets, daily range): BP systolic 119–130; BP diastolic 68–78; PULSE 59–115; RESP 20; TEMP 36.2–36.7; O2SAT 99–100
[2024-03-25 05:53] LABS: Hematocrit 37.2 % (42.0-52.0); Hemoglobin 12.9 g/dL (14.0-18.0); Mean Corpuscular HGB Conc 34.7 g/dl (32-36); Mean Corpuscular Hemoglobin 28.7 pg (26-34); Mean Corpuscular Volume 82.7 fl (80-100); Mean Platelet Volume 9.5 fl (7.4-10.4); Platelet Count Result 292 k/mm3 (150-375); Red Cell Distribution Width 12.9 % (11.5-14.5); White Blood Count 3.9 K/mm3 (4.5-10.0)
[2024-03-25 06:08] LABS: Anion Gap 13 mmol/L (4-12); Blood Urea Nitrogen 12 mg/dL (9-20); Calcium 9.3 mg/dL (8.4-10.2); Carbon Dioxide 21 mmol/L (22-30); Chloride 106 mmol/L (98-107); Estimated CRCL calculation 148 ml/min; Estimated Glomerular Filt Rate > 60; Glucose 83 mg/dL (65-110); Potassium 3.7 mmol/L (3.4-5.0); Sodium 140 mmol/L (137-145)
--- NOTE | 2024-03-25 08:22 | P.PNIM_ITS ---
Progress Note: A&P Assessment and Plan (1) Paresthesia: Code(s): R20.2 - Paresthesia of skin Status: Acute (2) Abnormal CT of brain: Code(s): R90.89 - Other abnormal findings on diagnostic imaging of central nervous system Status: Acute (3) Hypertension: Code(s): I10 - Essential (primary) hypertension Status: Acute (4) Hyperlipidemia: Qualifiers: Hyperlipidemia type: unspecified Qualified Code(s): E78.5 - Hyperlipidemia, unspecified Code(s): E78.5 - Hyperlipidemia, unspecified Status: Acute Plan 24 years old man with history of hypertension and hyperlipidemia who presented to the emergency department with a chief complaint of numbness in his fingers, toes, and stomach. Patient has numbness in his fingertips and toes and sensations of pins and needles the bottom of his feet. He also has sensation changes over the trunk and with further questioning he reports intermittent paresthesias in the left upper extremity dating back many months though they had always been fleeting. Today he had difficulties gripping tools at work. He also endorses intermittent sensation changes on the trunk. MS Brain CT showed mild nonspecific cerebral white matter disease and concerns were for possible multiple sclerosis. MRI of the brain and spine suggest MS No motor deficit Neuro check Consult neurologist for evaluation treatment Plans lumbar puncture tomorrow for confirming the diagnosis, for the lab workup per neurologist Essential hypertension Continue lisinopril 40 mg daily p.o. Subjective Date/time seen: 03/25/24 08:22 Interval history: I saw examined patient today, patient still have numbness of bilateral feet and hands, abdomen wall, denies dyspnea, chest pain, vision change, unstable gait, patient also denies fever chills, recent bloody diarrhea. Exam Narrative: GENERAL: Pleasant, in no acute distress. Well-nourished. - EYES: EOMI. Anicteric. - HENT: Moist mucous membranes. - LUNGS: Clear to auscultation bilateral ly, no wheezing, rhonchi, or rales. - CARDIOVASCULAR: Regular rate and rhyth m. No murmur. No JVD. - ABDOMEN: Soft, non-tender and non-dist ended. No palpable masses. - EXTREMITIES: No edema. Peripheral puls es 2+. Non-tender. - NEUROLOGIC: No focal neurological defi cits. CN II-XII grossly intact. Numbness of hands and feet - PSYCHIATRIC: Awake, Alert and oriented x 3. Appropriate mood and affect. - SKIN: No rashes or lesions. Warm. - LYMPH: No cervical lymphadenopathy. Objective Data Vital Signs Vital Signs: Vital Signs - 24 hr 03/24/24 09:46 03/24/24 10:51 03/24/24 10:55 Temperature 97.9 F Pulse Rate 99 98 Respiratory Rate 15 20 18 Blood Pressure 152/84 H 138/69 Pulse Oximetry 100 100 100 Oxygen Delivery Room Air 03/24/24 14:45 03/24/24 20:00 03/24/24 20:00 Temperature Pulse Rate 92 73 Respiratory Rate 20 Blood Pressure 120/70 Pulse Oximetry 94 Oxygen Delivery Room Air 03/24/24 20:06 03/25/24 00:00 03/25/24 04:00 Temperature 97.0 F L Pulse Rate 84 65 59 L Respiratory Rate 20 Blood Pressure 134/71 Pulse Oximetry 100 Oxygen Delivery 03/25/24 06:00 Temperature 97.3 F L Pulse Rate 74 Respiratory Rate 20 Blood Pressure 130/70 Pulse Oximetry 100 Oxygen Delivery Intake/Output Intake/Output: Intake & Output 03/22/24 03/23/24 03/24/24 03/25/24 23:59 23:59 23:59 23:59 Intake Total 240 400 Output Total 0 Balance 240 400 Meds/Results Medications: Active Medications Generic Name Dose Route Start Last Admin Trade Name Freq PRN Reason Stop Dose Admin Acetaminophen 650 mg 03/24/24 13:24 Acetaminophen 325 Mg Tablet PO Q4H PRN Mild Pain (1-3) or Fever Hydrocodone Bitart/Acetaminophen 1 tab 03/24/24 13:24 Hydrocodone/Acetaminophen (*Crx) 5-325 Mg Tablet PO Q4H PRN Pain Rated 4-6 Lisinopril 40 mg 03/25/24 09:00 Lisinopril 20 Mg Tablet PO DAILY JD Ondansetron HCl 4 mg 03/24/24 13:24 Ondansetron Inj 4 Mg/2 Ml Vial IV PUSH Q4H PRN Nausea Radiology Results: ITS Impressions Head CT 03/24/24 10:45 IMPRESSION: 1. Mild nonspecific cerebral white matter disease. The differential diagnosis includes premature chronic small vessel ischemic disease (especially if the patient has cardiovascular risk factors), demyelinating disease such as multiple sclerosis, drug abuse, vasculitis, or reactive astrocytosis (gliosis) secondary to nonspecific etiology. Labs Labs: Laboratory Results - last 24 hr 03/24/24 03/25/24 10:50 05:41 WBC 4.2 L 3.9 L RBC 4.98 4.50 L Hgb 14.3 12.9 L Hct 41.4 L 37.2 L MCV 83.1 82.7 MCH 28.7 28.7 MCHC 34.5 34.7 RDW 13.0 12.9 Plt Count 329 292 MPV 9.7 9.5 Immature Gran % (Auto) 0.2 Neut % (Auto) 51.1 Lymph % (Auto) 39.5 Sherman % (Auto) 7.7 Eos % (Auto) 1.0 Baso % (Auto) 0.5 Lymph # (Auto) 1.65 Sherman # (Auto) 0.3 Eos # (Auto) 0.0 Baso # (Auto) 0.0 Abs Immat Gran (auto) 0.01 Absolute Neuts (auto) 2.1 Absolute Nucleated RBC 0.000 Nucleated RBC % 0.0 Sodium 140 140 Potassium 3.7 3.7 Chloride 104 106 Carbon Dioxide 20 L 21 L Anion Gap 16 H 13 H BUN 11 12 Creatinine 0.80 0.73 Estim Creat Clear Calc 136 148 Estimated GFR > 60 > 60 Glucose 88 83 Calcium 10.0 9.3 Phosphorus 3.1 Magnesium 1.9 2.0 Total Bilirubin 0.8 AST 23 ALT 30 Alkaline Phosphatase 77 Total Protein 8.0 Albumin 4.9 Vitamin B12 441.0 Vitamin D 25-Hydroxy 21.1 Folate 4.8 TSH (Reflex) 0.430 L Free T4 1.50 Total T3 1.49
[2024-03-25] MEDS: lisinopriL 20 MG TABLET 40 MG PO (08:44)
--- NOTE | 2024-03-25 10:38 | PC.NURSE ---
Patient off of unit to MRI
--- NOTE | 2024-03-25 12:35 | P.CONNEU_ITS ---
Assessment and Plan Assessment and plan (1) OPERATING ROOM NURSE demyelinating disease: Code(s): G37.9 - Demyelinating disease of central nervous system, unspecified Status: Acute Plan 24 years old young man with complaints of tingling and numbness also on his trunk in addition to hands and feet but of several months duration evaluation up until now included the MRI of the brain revealing greater than 30 total lesions of increased T2 weighted signal intensity multiple of them are periventricular and juxta cortical without enhancement without hemorrhage with normal ventricles suggestive of demyelinating disease that is multiple sclerosis, cervical spine MRI is also abnormal with ill-defined lesions of increased T2 signal intensity without any enhancement, thoracic spine MRI revealed 2 spinal cord lesion with increased T2 signal without enhancement. MRI of the lumbar spine obviously negative. Patient was advise accordingly will benefit from a spinal fluid studies before any kind of treatment plan he can get the tap done during his hospitalization and follow with a physician results will be available in next few days . Patient owns mother and the family agreed. Consult date: 03/25/24 HPI: Eh Ken is a 24 year old male Has been admitted to the hospital through the emergency room for the complaints of numbness, pins and needles sensation to his hands bilaterally as well as to his abdomen and back from the undersigned of his ribcage in going down to his feet bilaterally though sparing groin and rectal area and they had no difficulties in the CK dailey or urination patient also reported that he had intermittent numbness in [place] or arm over the last year but nothing like this this symptomatology has been constant for the last 72hours he has no history of any autoimmune disease, no history of recent viral illness, he also mentioned that he has lost 100lb over the last 1 year and he is not eating full meals. He has a history of negative cardiac stress test in November 28 he has history of hyperlipidemia, his history of hypertension, he has never smoker, but chewing tobacco and currently drinks only 1 drink of alcohol per week, on initial examination in the emergency room his exam was normal, his vital signs were normal except blood pressure 152/84 CBC was normal, BMP was normal, routine lab was completely normal except TSH of 0.430, still CT scan of the head was negative, Review of Systems 2 Review of Systems: All systems reviewed & are unremarkable except as noted in HPI and below PMFSH Past Medical History Medical History Normal cardiac stress test (11/2023) Hyperlipidemia Hypertension Family History Family History Father Alcoholism Acute myocardial infarction Grandparent Hypertension Heart problem Social History Social History (Updated 03/24/24 @ 19:42 by Wandy Grider PA-C) Social History: Surrogate medical decision maker: Blossom Ken, mother. Code status: Full code. Smoking status: Never smoker Smokeless tobacco user: chewing tobacco Second hand tobacco smoke exposure: Yes Alcohol intake: current Drinks per week: 1 Substance use: never Substance use type: does not use Do You Feel Safe in your Home?: Yes Lack of Transportation: No Lack of Food: Never True Current Housing: I Have Housing Concerned About Future Housing: No Difficulty Paying Gas/Electric Bills: No Difficulty Paying for Meds: No Currently Unemployed: No Education: Trade/Vocational Certificate Difficulty w/ Childcare or Family Care: No Spiritual care concerns: No Meds Home Medications and Allergies Home Medications ?Medication ?Instructions ?Recorded ?Confirmed ?Type lisinopril 40 mg tablet 40 mg PO DAILY #90 tabs 02/15/24 03/24/24 Rx tirzepatide (weight loss) 12.5 12.5 mg (0.5 mL) subcut WEEKLY #2 03/17/24 03/24/24 Rx mg/0.5 mL subcutaneous pen mL injector (Zepbound) Allergies Allergy/AdvReac Type Severity Reaction Status Date / Time No Known Allergies Allergy Verified 03/24/24 09:38 Vital Signs Vital Signs - 24 hr 03/24/24 14:45 03/24/24 20:00 03/24/24 20:00 Temperature Pulse Rate 92 73 Respiratory Rate 20 Blood Pressure 120/70 Pulse Oximetry 94 Oxygen Delivery Room Air 03/24/24 20:06 03/25/24 00:00 03/25/24 04:00 Temperature 36.1 C L Pulse Rate 84 65 59 L Respiratory Rate 20 Blood Pressure 134/71 Pulse Oximetry 100 Oxygen Delivery 03/25/24 06:00 03/25/24 08:45 03/25/24 08:45 Temperature 36.3 C L Pulse Rate 74 80 Respiratory Rate 20 Blood Pressure 130/70 Pulse Oximetry 100 Oxygen Delivery Room Air Exam 2 Narrative: Awake alert cooperative in no obvious acute distress, head normocephalic with no cranial bruit, ear nose throat examination normal, neck supple with no cervical bruit no thyromegaly no lymphadenopathy, heart regular with no murmur, clear to auscultation, abdomen is soft nontender normal bowel sounds, his skin clear, neurological examination revealed him to be awake alert oriented x3, pupils round regular react to light equally he had normal Junaid pupil, extraocular movements full with no nystagmus facial sensation intact face symmetrical tongue midline admission revealed him to have drift of 1 side or other side normal strength 5/5 reflexes brisk plantars questionably up mild ataxia and dysmetria on [id number]-finger and heel to knee to dailey bilaterally. Results Labs 03/25/24 05:41 03/25/24 05:41 Labs: Short CBC 03/25/24 Range/Units 05:41 WBC 3.9 L (4.5-10.0) K/mm3 Hgb 12.9 L (14.0-18.0) g/dL Hct 37.2 L (42.0-52.0) % Plt Count 292 (150-375) k/mm3 [facility] 03/25/24 05:41 Sodium 140 Potassium 3.7 Chloride 106 Carbon Dioxide 21 L BUN 12 Creatinine 0.73 Glucose 83 Calcium 9.3
[2024-03-26] VITALS (8 sets, daily range): BP systolic 113–135; BP diastolic 71–77; PULSE 58–97; RESP 16–20; TEMP 36.1–36.9; O2SAT 100
[2024-03-26] MEDS: lisinopriL 20 MG TABLET 40 MG PO (08:25)
[2024-03-26 08:51] LABS: Mean Platelet Volume 9.6 fl (7.4-10.4); Platelet Count Result 364 k/mm3 (150-375)
[2024-03-26 09:07] LABS: INR 1.1; Prothrombin Time 14.3 Seconds (11.1-14.7)
[2024-03-26 09:08] LABS: Partial Thromboplastin Time 32.3 Seconds (22.3-36.8)
--- NOTE | 2024-03-26 09:25 | PC.NURSE ---
Patient to XR per wheelchair.
--- NOTE | 2024-03-26 09:29 | P.PNIM_ITS ---
Progress Note: A&P Assessment and Plan (1) Paresthesia: Code(s): R20.2 - Paresthesia of skin Status: Acute (2) Abnormal CT of brain: Code(s): R90.89 - Other abnormal findings on diagnostic imaging of central nervous system Status: Acute (3) Hypertension: Code(s): I10 - Essential (primary) hypertension Status: Acute (4) Hyperlipidemia: Qualifiers: Hyperlipidemia type: unspecified Qualified Code(s): E78.5 - Hyperlipidemia, unspecified Code(s): E78.5 - Hyperlipidemia, unspecified Status: Acute Plan 24 years old man with history of hypertension and hyperlipidemia who presented to the emergency department with a chief complaint of numbness in his fingers, toes, and stomach. Patient has numbness in his fingertips and toes and sensations of pins and needles the bottom of his feet. He also has sensation changes over the trunk and with further questioning he reports intermittent paresthesias in the left upper extremity dating back many months though they had always been fleeting. Today he had difficulties gripping tools at work. He also endorses intermittent sensation changes on the trunk. MS Brain CT showed mild nonspecific cerebral white matter disease and concerns were for possible multiple sclerosis. MRI of the brain and spine suggest MS No motor deficit Neuro check Consult neurologist for evaluation treatment Plans lumbar puncture tomorrow for confirming the diagnosis, for the lab workup per neurologist 03/26: Underwent lumbar puncture without complication, no improvement of the numbness of his hands and feet. No new issues Start methylprednisone IV 1 g daily plans 5 doses Essential hypertension Continue lisinopril 40 mg daily p.o. Subjective Date/time seen: 03/26/24 09:29 Interval history: I saw examined patient today, patient underwent lumbar puncture without complication, patient denies headache, lightheadedness. Still have numbness of bilateral feet and hands, abdomen wall, denies dyspnea, chest pain, vision change, unstable gait. Exam Narrative: GENERAL: Pleasant, in no acute distress. Well-nourished. - EYES: EOMI. Anicteric. - HENT: Moist mucous membranes. - LUNGS: Clear to auscultation bilateral ly, no wheezing, rhonchi, or rales. - CARDIOVASCULAR: Regular rate and rhyth m. No murmur. No JVD. - ABDOMEN: Soft, non-tender and non-dist ended. No palpable masses. - EXTREMITIES: No edema. Peripheral puls es 2+. Non-tender. - NEUROLOGIC: No focal neurological defi cits. CN II-XII grossly intact. Numbness of hands and feet - PSYCHIATRIC: Awake, Alert and oriented x 3. Appropriate mood and affect. - SKIN: No rashes or lesions. Warm. - LYMPH: No cervical lymphadenopathy. Objective Data Vital Signs Vital Signs: Vital Signs - 24 hr 03/25/24 14:00 03/25/24 16:00 03/25/24 20:00 Temperature 98.0 F Pulse Rate 84 115 H Respiratory Rate 20 Blood Pressure 126/78 Pulse Oximetry 99 Oxygen Delivery Room Air 03/25/24 20:00 03/25/24 22:04 03/26/24 00:00 Temperature 97.1 F L Pulse Rate 71 74 61 Respiratory Rate 20 Blood Pressure 119/68 Pulse Oximetry 100 Oxygen Delivery 03/26/24 04:00 03/26/24 06:00 Temperature 97.0 F L Pulse Rate 58 L 75 Respiratory Rate 20 Blood Pressure 113/75 Pulse Oximetry 100 Oxygen Delivery Intake/Output Intake/Output: Intake & Output 03/23/24 03/24/24 03/25/24 03/26/24 23:59 23:59 23:59 23:59 Intake Total 240 2200 800 Output Total 0 Balance 240 2200 800 Meds/Results Medications: Active Medications Generic Name Dose Route Start Last Admin Trade Name Freq PRN Reason Stop Dose Admin Acetaminophen 650 mg 03/24/24 13:24 Acetaminophen 325 Mg Tablet PO Q4H PRN Mild Pain (1-3) or Fever Hydrocodone Bitart/Acetaminophen 1 tab 03/24/24 13:24 Hydrocodone/Acetaminophen (*Crx) 5-325 Mg Tablet PO Q4H PRN Pain Rated 4-6 Lisinopril 40 mg 03/25/24 09:00 03/26/24 08:25 Lisinopril 20 Mg Tablet PO 40 mg DAILY JD Administration Ondansetron HCl 4 mg 03/24/24 13:24 Ondansetron Inj 4 Mg/2 Ml Vial IV PUSH Q4H PRN Nausea Radiology Results: ITS Impressions Head CT 03/24/24 10:45 IMPRESSION: 1. Mild nonspecific cerebral white matter disease. The differential diagnosis includes premature chronic small vessel ischemic disease (especially if the patient has cardiovascular risk factors), demyelinating disease such as multiple sclerosis, drug abuse, vasculitis, or reactive astrocytosis (gliosis) secondary to nonspecific etiology. Brain MRI 03/25/24 12:34 IMPRESSION: 1. Brain lesions, most likely multiple sclerosis. Lumbar Spine MRI 03/25/24 12:37 IMPRESSION: 1. 7 degrees lumbar levocurvature with minimal spondylosis. Otherwise unremarkable lumbar spine MRI with no abnormally enhancing lesions. Cervical Spine MRI 03/25/24 12:39 IMPRESSION: 1. Spinal cord lesions, consistent with multiple sclerosis. Thoracic Spine MRI 03/25/24 12:42 IMPRESSION: 1. 2 spinal cord lesions with increased T2 signal but without enhancement in the lower thoracic spine and a couple in the lower cervical spine consistent with multiple sclerosis. Labs Labs: Laboratory Results - last 24 hr 03/26/24 08:41 Plt Count 364 MPV 9.6 PT 14.3 INR 1.1 APTT 32.3
[2024-03-26 10:43] LABS: Glucose CSF 46 mg/dL (40-70); Total Protein CSF 63 mg/dL (12-60)
[2024-03-26 11:58] LABS: CSF source CSF
[2024-03-26 11:59] LABS: Appearance CSF Clear (Clear); Color CSF Colorless (Colorless)
[2024-03-26 12:00] LABS: Nucleated Cell CSF 13 /uL (0-5)
[2024-03-26 12:01] LABS: Lymphocytes CSF 98 % (40-80); Monocytes CSF 2 % (15-45); Red Blood Cell CSF 1 (0-2)
--- NOTE | 2024-03-26 12:04 | WPDNEUROPN ---
Subjective Date/time seen: 03/26/24 12:04 Interval history: 24 years old with possibility of demyelinating disease, normal routine lab studies, his spinal fluid with 13 nucleated cells, 98% lymphocytes only 2 monocytes and 46 glucose with 63 protein, abnormal MRI of the brain, abnormal cervical spine MRI and abnormal MRI of thoracic spine with spinal cord lesions. He is feeling comfortable subsequent to spinal tap was instructed to follow-up with the neurologist as an outpatient as the results are not available at this time but he appears extremely anxious nervous and considering the abnormalities on the MRIs while he is here trigger give a course of 5 days treatment of Medrol IV the results will be obtained in the meantime and obviously will need a follow-up with the neurologist as an outpatient. Him and his girlfriend would like to stay and get the treatment. Objective Data Vital Signs Vital Signs: Vital Signs - 24 hr 03/25/24 14:00 03/25/24 16:00 03/25/24 20:00 Temperature 36.7 C Pulse Rate 84 115 H Respiratory Rate 20 Blood Pressure 126/78 Pulse Oximetry 99 Oxygen Delivery Room Air 03/25/24 20:00 03/25/24 22:04 03/26/24 00:00 Temperature 36.2 C L Pulse Rate 71 74 61 Respiratory Rate 20 Blood Pressure 119/68 Pulse Oximetry 100 Oxygen Delivery 03/26/24 04:00 03/26/24 06:00 03/26/24 08:04 Temperature 36.1 C L Pulse Rate 58 L 75 92 Respiratory Rate 20 Blood Pressure 113/75 Pulse Oximetry 100 Oxygen Delivery 03/26/24 10:41 Temperature Pulse Rate 82 Respiratory Rate 16 Blood Pressure 121/71 Pulse Oximetry 100 Oxygen Delivery Intake/Output Intake/Output: Intake & Output 03/23/24 03/24/24 03/25/24 03/26/24 23:59 23:59 23:59 23:59 Intake Total 240 2200 1100 Output Total 0 Balance 240 2200 1100 Meds/Results Medications: Active Medications Generic Name Dose Route Start Last Admin Trade Name Freq PRN Reason Stop Dose Admin Acetaminophen 650 mg 03/24/24 13:24 Acetaminophen 325 Mg Tablet PO Q4H PRN Mild Pain (1-3) or Fever Hydrocodone Bitart/Acetaminophen 1 tab 03/24/24 13:24 Hydrocodone/Acetaminophen (*Crx) 5-325 Mg Tablet PO Q4H PRN Pain Rated 4-6 Methylprednisolone Sodium 266 mls @ 44.333 mls/hr 03/26/24 12:30 Succinate 1,000 mg/ Dextrose IVPB QAM JD Lisinopril 40 mg 03/25/24 09:00 03/26/24 08:25 Lisinopril 20 Mg Tablet PO 40 mg DAILY JD Administration Ondansetron HCl 4 mg 03/24/24 13:24 Ondansetron Inj 4 Mg/2 Ml Vial IV PUSH Q4H PRN Nausea Radiology Results: ITS Impressions Head CT 03/24/24 10:45 IMPRESSION: 1. Mild nonspecific cerebral white matter disease. The differential diagnosis includes premature chronic small vessel ischemic disease (especially if the patient has cardiovascular risk factors), demyelinating disease such as multiple sclerosis, drug abuse, vasculitis, or reactive astrocytosis (gliosis) secondary to nonspecific etiology. Brain MRI 03/25/24 12:34 IMPRESSION: 1. Brain lesions, most likely multiple sclerosis. Lumbar Spine MRI 03/25/24 12:37 IMPRESSION: 1. 7 degrees lumbar levocurvature with minimal spondylosis. Otherwise unremarkable lumbar spine MRI with no abnormally enhancing lesions. Cervical Spine MRI 03/25/24 12:39 IMPRESSION: 1. Spinal cord lesions, consistent with multiple sclerosis. Thoracic Spine MRI 03/25/24 12:42 IMPRESSION: 1. 2 spinal cord lesions with increased T2 signal but without enhancement in the lower thoracic spine and a couple in the lower cervical spine consistent with multiple sclerosis. Lumbar Puncture Fluoroscopy 03/26/24 11:34 IMPRESSION: 1. Successful fluoro-guided lumbar puncture with normal opening pressure of 14 cm water. Labs Labs: Laboratory Results - last 24 hr 03/26/24 03/26/24 08:41 09:42 Plt Count 364 MPV 9.6 PT 14.3 INR 1.1 APTT 32.3 CSF Source Csf CSF Appearance Clear CSF Color Colorless CSF RBC 1 CSF Tot Nucleated Cells 13 H CSF Lymphocytes 98 H CSF Monocytes 2 L CSF Glucose 46 CSF Total Protein 63 H Ref Lab Test Name Cancelled Ref Lab Test Result Cancelled
[2024-03-26] MEDS: methylPREDNISolone SOD SUCC 1,000 MG in DEXTROSE 5% IN WATER 250 ML 44.33 MG IVPB (13:26)
[2024-03-27 05:04] VITALS: BP 117/63; PULSE 95; RESP 16; TEMP 36.5; O2SAT 100
[2024-03-27] MEDS: methylPREDNISolone SOD SUCC 1,000 MG in DEXTROSE 5% IN WATER 250 ML 44.3 MG IVPB (08:56)
[2024-03-27] MEDS: lisinopriL 20 MG TABLET 40 MG PO (08:56)
--- NOTE | 2024-03-27 09:22 | P.PNIM_ITS ---
Progress Note: A&P Assessment and Plan (1) Paresthesia: Code(s): R20.2 - Paresthesia of skin Status: Acute (2) Abnormal CT of brain: Code(s): R90.89 - Other abnormal findings on diagnostic imaging of central nervous system Status: Acute (3) Hypertension: Code(s): I10 - Essential (primary) hypertension Status: Acute (4) Hyperlipidemia: Qualifiers: Hyperlipidemia type: unspecified Qualified Code(s): E78.5 - Hyperlipidemia, unspecified Code(s): E78.5 - Hyperlipidemia, unspecified Status: Acute Plan 24 years old man with history of hypertension and hyperlipidemia who presented to the emergency department with a chief complaint of numbness in his fingers, toes, and stomach. Patient has numbness in his fingertips and toes and sensations of pins and needles the bottom of his feet. He also has sensation changes over the trunk and with further questioning he reports intermittent paresthesias in the left upper extremity dating back many months though they had always been fleeting. Today he had difficulties gripping tools at work. He also endorses intermittent sensation changes on the trunk. MS Brain CT showed mild nonspecific cerebral white matter disease and concerns were for possible multiple sclerosis. MRI of the brain and spine suggest MS No motor deficit Neuro check Consult neurologist for evaluation treatment Plans lumbar puncture tomorrow for confirming the diagnosis, for the lab workup per neurologist Underwent lumbar puncture without complication, no improvement of the numbness of his hands and feet. No new issues Start methylprednisone IV 1 g daily on 03/26 continue methylprednisolone IV for 5 doses Essential hypertension Continue lisinopril 40 mg daily p.o. Subjective Date/time seen: 03/27/24 09:22 Interval history: I saw examined patient today, patient ambulated without difficulty, patient denies headache, lightheadedness. Still have numbness of bilateral feet and hands, abdomen wall, denies dyspnea, chest pain, vision change, unstable gait. Exam Narrative: GENERAL: Pleasant, in no acute distress. Well-nourished. - EYES: EOMI. Anicteric. - HENT: Moist mucous membranes. - LUNGS: Clear to auscultation bilateral ly, no wheezing, rhonchi, or rales. - CARDIOVASCULAR: Regular rate and rhyth m. No murmur. No JVD. - ABDOMEN: Soft, non-tender and non-dist ended. No palpable masses. - EXTREMITIES: No edema. Peripheral puls es 2+. Non-tender. - NEUROLOGIC: No focal neurological defi cits. CN II-XII grossly intact. Numbness of hands and feet - PSYCHIATRIC: Awake, Alert and oriented x 3. Appropriate mood and affect. - SKIN: No rashes or lesions. Warm. - LYMPH: No cervical lymphadenopathy. Objective Data Vital Signs Vital Signs: Vital Signs - 24 hr 03/26/24 10:41 03/26/24 12:05 03/26/24 14:26 Temperature 98.4 F Pulse Rate 82 79 97 Respiratory Rate 16 16 Blood Pressure 121/71 122/77 Pulse Oximetry 100 100 Oxygen Delivery 03/26/24 19:43 03/26/24 21:29 03/27/24 05:04 Temperature 97.7 F 97.7 F Pulse Rate 82 95 Respiratory Rate 16 16 Blood Pressure 135/71 117/63 Pulse Oximetry 100 100 Oxygen Delivery Room Air Intake/Output Intake/Output: Intake & Output 03/24/24 03/25/24 03/26/24 03/27/24 23:59 23:59 23:59 23:59 Intake Total 240 2200 2606 300 Output Total 0 550 Balance 240 2200 2056 300 Meds/Results Medications: Active Medications Generic Name Dose Route Start Last Admin Trade Name Freq PRN Reason Stop Dose Admin Acetaminophen 650 mg 03/24/24 13:24 Acetaminophen 325 Mg Tablet PO Q4H PRN Mild Pain (1-3) or Fever Hydrocodone Bitart/Acetaminophen 1 tab 03/24/24 13:24 Hydrocodone/Acetaminophen (*Crx) 5-325 Mg Tablet PO Q4H PRN Pain Rated 4-6 Methylprednisolone Sodium 266 mls @ 44.333 mls/hr 03/26/24 12:30 03/27/24 08:56 Succinate 1,000 mg/ Dextrose IVPB 03/30/24 14:59 44.3 mls/hr QAM JD Administration Lisinopril 40 mg 03/25/24 09:00 03/27/24 08:56 Lisinopril 20 Mg Tablet PO 40 mg DAILY JD Administration Ondansetron HCl 4 mg 03/24/24 13:24 Ondansetron Inj 4 Mg/2 Ml Vial IV PUSH Q4H PRN Nausea Radiology Results: ITS Impressions Head CT 03/24/24 10:45 IMPRESSION: 1. Mild nonspecific cerebral white matter disease. The differential diagnosis includes premature chronic small vessel ischemic disease (especially if the patient has cardiovascular risk factors), demyelinating disease such as multiple sclerosis, drug abuse, vasculitis, or reactive astrocytosis (gliosis) secondary to nonspecific etiology. Brain MRI 03/25/24 12:34 IMPRESSION: 1. Brain lesions, most likely multiple sclerosis. Lumbar Spine MRI 03/25/24 12:37 IMPRESSION: 1. 7 degrees lumbar levocurvature with minimal spondylosis. Otherwise unremarkable lumbar spine MRI with no abnormally enhancing lesions. Cervical Spine MRI 03/25/24 12:39 IMPRESSION: 1. Spinal cord lesions, consistent with multiple sclerosis. Thoracic Spine MRI 03/25/24 12:42 IMPRESSION: 1. 2 spinal cord lesions with increased T2 signal but without enhancement in the lower thoracic spine and a couple in the lower cervical spine consistent with multiple sclerosis. Lumbar Puncture Fluoroscopy 03/26/24 11:34 IMPRESSION: 1. Successful fluoro-guided lumbar puncture with normal opening pressure of 14 cm water. Labs Labs: Laboratory Results - last 24 hr 03/26/24 09:42 CSF Source Csf CSF Appearance Clear CSF Color Colorless CSF RBC 1 CSF Tot Nucleated Cells 13 H CSF Lymphocytes 98 H CSF Monocytes 2 L CSF Glucose 46 CSF Total Protein 63 H Ref Lab Test Name Cancelled Ref Lab Test Result Cancelled
[2024-03-27 10:02] LABS: Hematocrit 41.2 % (42.0-52.0); Hemoglobin 14.5 g/dL (14.0-18.0); Mean Corpuscular HGB Conc 35.2 g/dl (32-36); Mean Corpuscular Hemoglobin 28.4 pg (26-34); Mean Corpuscular Volume 80.8 fl (80-100); Mean Platelet Volume 9.7 fl (7.4-10.4); Platelet Count Result 403 k/mm3 (150-375); Red Cell Distribution Width 12.9 % (11.5-14.5); White Blood Count 10.5 K/mm3 (4.5-10.0)
[2024-03-27 10:14] LABS: Anion Gap 17 mmol/L (4-12); Blood Urea Nitrogen 10 mg/dL (9-20); Calcium 10.1 mg/dL (8.4-10.2); Carbon Dioxide 18 mmol/L (22-30); Chloride 105 mmol/L (98-107); Estimated CRCL calculation 121 ml/min; Estimated Glomerular Filt Rate > 60; Glucose 131 mg/dL (65-110); Potassium 3.8 mmol/L (3.4-5.0); Sodium 140 mmol/L (137-145)
[2024-03-27 12:28] LABS: Vitamin B6 17.1 ng/mL (2.1-21.7)
[2024-03-27 15:04] VITALS: BP 118/70; PULSE 101; RESP 16; TEMP 36.4; O2SAT 100
--- NOTE | 2024-03-27 18:19 | PC.NURSE ---
On 03/27/24, the student, Yoly Gan, provided care and completed [facility] documentation on this patient. I have reviewed the student's documentation and agree with the findings.
[2024-03-27 20:52] VITALS: BP 139/78; PULSE 98; RESP 18; TEMP 36.5; O2SAT 99
[2024-03-28 05:04] VITALS: BP 122/67; PULSE 92; RESP 16; TEMP 36.2; O2SAT 100
[2024-03-28] MEDS: lisinopriL 20 MG TABLET 40 MG PO (08:20)
[2024-03-28] MEDS: methylPREDNISolone SOD SUCC 1,000 MG in DEXTROSE 5% IN WATER 250 ML 44.3 MG IVPB (09:09)
--- NOTE | 2024-03-28 09:09 | PM.IMPN ---
Progress Note: A&P Assessment and Plan (1) Paresthesia: Code(s): R20.2 - Paresthesia of skin Status: Acute (2) Abnormal CT of brain: Code(s): R90.89 - Other abnormal findings on diagnostic imaging of central nervous system Status: Acute Assessment and Plan: ##MS -->Brain CT showed mild nonspecific cerebral white matter disease and concerns were for possible multiple sclerosis. -->MRI of the brain and spine suggest MS - No motor deficit - Neuro check - Consulted neurologist for evaluation treatment - follow up outpatient sunday in office as scheduled - Underwent lumbar puncture without complication, no improvement of the numbness of his hands and feet. No new issues - Started methylprednisone IV 1 g daily on 03/26 continue methylprednisolone IV for 5 doses (3) Hypertension: Code(s): I10 - Essential (primary) hypertension Status: Acute Assessment and Plan: stable continue home medications (4) Hyperlipidemia: Qualifiers: Hyperlipidemia type: unspecified Qualified Code(s): E78.5 - Hyperlipidemia, unspecified Code(s): E78.5 - Hyperlipidemia, unspecified Status: Acute Assessment and Plan: stable continue home medications Time Spent With Patient Time with patient: 25 - 35 minutes (35 minutes) Subjective Date/time seen: 03/28/24 09:09 Interval history: this is a 24 y/o male patient ambulated without difficulty, patient denies headache, lightheadedness. Still have numbness of bilateral feet and hands, abdomen wall, denies dyspnea, chest pain, vision change, unstable gait. He continues to note some numbness and tingling in his fingers, and his feet. He reports overall he is feeling somewhat improved. He is tolerating the IV steroids well. Denies any distress she thinks. Patient has a follow-up appointment with Neurology on Sunday. Review of Systems Review of Systems: 12 systems were reviewed and are negative except for as per HPI. All systems reviewed & are unremarkable except as noted in HPI and below Exam Const: General: cooperative, healthy appearing, comfortable, alert and awake Nutritional Appearance: average body habitus Orientation/consciousness: oriented to person, oriented to place and oriented to time Limitations: no limitations HENMT: Head: normal to inspection and normocephalic Eyes: General: appearance normal, both eyes and all related structures Neck: Neck: normal visual inspection, full ROM and no lymphadenopathy Chest: Chest palpation & inspection: normal inspection of the chest Resp: Effort & Inspection: normal respiratory effort Auscultation: clear to auscultation bilaterally Cardio: Jugular venous distension: no JVD Rate: regular rate Rhythm: regular rhythm Heart sounds: S1 normal heart sound present and S2 normal heart sound present Peripheral pulses: Peripheral pulses 2+ throughout GI: Inspection: normal to inspection GI Palp: Yes Soft to palpation Auscultation: normal bowel sounds Skin: General skin exam: normal color and no rashes or lesions noted Neuro: General: patient oriented x3, tone normal and moves all extremities Cranial nerves: Yes CN's II-XII intact bilaterally Extrem: General: normal to inspection Right upper extremity: normal to inspection Left upper extremity: normal to inspection Right lower extremity: normal to inspection Left lower extremity: normal to inspection Psych: Appearance: grossly normal Mental Status: mental status grossly normal Speech and movement: Normal speech and movement present Objective Data Vital Signs Vital Signs: Vital Signs - 24 hr 03/27/24 15:04 03/27/24 20:52 03/28/24 05:04 Temperature 97.6 F 97.7 F 97.1 F L Pulse Rate 101 H 98 92 Respiratory Rate 16 18 16 Blood Pressure 118/70 139/78 122/67 Pulse Oximetry 100 99 100 Intake/Output Intake/Output: Intake & Output 03/25/24 03/26/24 03/27/24 03/28/24 23:59 23:59 23:59 23:59 Intake Total 2200 2606 3020 450 Output Total 550 Balance 2200 2056 3020 450 Meds/Results Medications: Active Medications Generic Name Dose Route Start Last Admin Trade Name Chrisq PRN Reason Stop Dose Admin Acetaminophen 650 mg 03/24/24 13:24 Acetaminophen 325 Mg Tablet PO Q4H PRN Mild Pain (1-3) or Fever Hydrocodone Bitart/Acetaminophen 1 tab 03/24/24 13:24 Hydrocodone/Acetaminophen (*Crx) 5-325 Mg Tablet PO Q4H PRN Pain Rated 4-6 Methylprednisolone Sodium 266 mls @ 44.333 mls/hr 03/26/24 12:30 03/27/24 08:56 Succinate 1,000 mg/ Dextrose IVPB 03/30/24 14:59 44.3 mls/hr QAM JD Administration Lisinopril 40 mg 03/25/24 09:00 03/28/24 08:20 Lisinopril 20 Mg Tablet PO 40 mg DAILY JD Administration Ondansetron HCl 4 mg 03/24/24 13:24 Ondansetron Inj 4 Mg/2 Ml Vial IV PUSH Q4H PRN Nausea Radiology Results: ITS Impressions Head CT 03/24/24 10:45 IMPRESSION: 1. Mild nonspecific cerebral white matter disease. The differential diagnosis includes premature chronic small vessel ischemic disease (especially if the patient has cardiovascular risk factors), demyelinating disease such as multiple sclerosis, drug abuse, vasculitis, or reactive astrocytosis (gliosis) secondary to nonspecific etiology. Brain MRI 03/25/24 12:34 IMPRESSION: 1. Brain lesions, most likely multiple sclerosis. Lumbar Spine MRI 03/25/24 12:37 IMPRESSION: 1. 7 degrees lumbar levocurvature with minimal spondylosis. Otherwise unremarkable lumbar spine MRI with no abnormally enhancing lesions. Cervical Spine MRI 03/25/24 12:39 IMPRESSION: 1. Spinal cord lesions, consistent with multiple sclerosis. Thoracic Spine MRI 03/25/24 12:42 IMPRESSION: 1. 2 spinal cord lesions with increased T2 signal but without enhancement in the lower thoracic spine and a couple in the lower cervical spine consistent with multiple sclerosis. Lumbar Puncture Fluoroscopy 03/26/24 11:34 IMPRESSION: 1. Successful fluoro-guided lumbar puncture with normal opening pressure of 14 cm water. Labs Labs: Laboratory Results - last 24 hr 03/24/24 03/27/24 10:50 09:55 WBC 10.5 H RBC 5.10 Hgb 14.5 Hct 41.2 L MCV 80.8 MCH 28.4 MCHC 35.2 RDW 12.9 Plt Count 403 H MPV 9.7 Sodium 140 Potassium 3.8 Chloride 105 Carbon Dioxide 18 L Anion Gap 17 H BUN 10 Creatinine 0.91 Estim Creat Clear Calc 121 Estimated GFR > 60 Glucose 131 H Calcium 10.1 Vitamin B6 17.1 Quality VTE Prophylaxis VTE prophylaxis: mechanical ordered Hospitalist [facility] Advance Care Plan I have confirmed that the patient's Advanced Care Plan is present, code status is documented, or surrogate decision maker is listed in patient medical record.: Yes Medication Reconciliation I have utilized all available resources to obtain, update and review the patients current medications (includes all prescriptions, OTC, herbals, cannabis, and nutritional supplements).: Yes
[2024-03-28 14:00] VITALS: BP 128/65; PULSE 102; RESP 16; TEMP 36.2; O2SAT 100
[2024-03-28 20:26] VITALS: BP 134/63; PULSE 80; RESP 18; O2SAT 100
[2024-03-28 23:49] VITALS: O2SAT 100
[2024-03-29 05:23] VITALS: BP 108/56; PULSE 97; RESP 16; TEMP 36.4; O2SAT 100
--- NOTE | 2024-03-29 07:47 | P.PNIM_ITS ---
Progress Note: A&P Assessment and Plan (1) Paresthesia: Code(s): R20.2 - Paresthesia of skin Status: Acute Assessment and Plan: -continue to monitor, --> most likely related to MS (2) Abnormal CT of brain: Code(s): R90.89 - Other abnormal findings on diagnostic imaging of central nervous system Status: Acute Assessment and Plan: ##MS -->Brain CT showed mild nonspecific cerebral white matter disease and concerns were for possible multiple sclerosis. -->MRI of the brain and spine suggest MS - No motor deficit - Neuro check - Consulted neurologist for evaluation treatment - follow up outpatient sunday in office as scheduled - Underwent lumbar puncture without complication, no improvement of the numbness of his hands and feet. No new issues - Started methylprednisone IV 1 g daily on 03/26 continue methylprednisolone IV for 5 doses (3) Hypertension: Code(s): I10 - Essential (primary) hypertension Status: Acute Assessment and Plan: stable continue home medications (4) Hyperlipidemia: Qualifiers: Hyperlipidemia type: unspecified Qualified Code(s): E78.5 - Hyperlipidemia, unspecified Code(s): E78.5 - Hyperlipidemia, unspecified Status: Acute Assessment and Plan: stable continue home medications Plan DVT - mechanical Code status - full code Time Spent With Patient Time with patient: Greater than 35 minutes (40 minutes) Subjective Date/time seen: 03/29/24 07:47 Interval history: this is a 24 y/o male patient ambulated without difficulty, patient denies headache, lightheadedness. Still have numbness of bilateral feet and hands, abdomen wall, denies dyspnea, chest pain, vision change, unstable gait. He continues to note some numbness and tingling in his fingers, and his feet. He reports overall he is feeling somewhat improved. Patient was up ambulating in the hallway several times this morning. He is tolerating the IV steroids well. Denies any distress she thinks. Patient has a follow-up appointment with Neurology on Sunday. Review of Systems Review of Systems: 12 systems were reviewed and are negativ e except for as per HPI. All systems reviewed & are unremarkable except as noted in HPI and below Constitutional: Constitutional: Reports no additional constitutional complaints Eyes: Eyes: Reports as per HPI and Reports no additional eye complaints ENT: Reports system reviewed and no additional complaints, except as documented Cardiovascular: Cardiovascular: Reports no additional cardiovascular complaints Respiratory: Respiratory: Reports no additional respiratory complaints Gastrointestinal: Gastrointestinal: Reports no additional gastrointestinal complaints Genitourinary: Genitourinary: Reports no additional male genitourinary complaints Musculoskeletal: Musculoskeletal: Reports no additional musculoskeletal complaints Integumentary/Breasts: Skin/Breast: Reports system reviewed and no additional complaints, except as docu Neurologic: Reports system reviewed and no additional complaints, except as documented Psychiatric: Psychiatric: Reports no additional psychiatric complaints Endocrine: Endocrine: Reports no additional endocrine complaints Hematologic/Lymphatic: Hematologic/Lymphatic: Reports no additional hematologic/lymphatic complaints Allergic/Immunologic: Allergic/Immunologic: Reports no additional allergic/immunologic complaints Exam Const: General: cooperative, healthy appearing, comfortable, alert, awake and average body habitus Nutritional Appearance: average body habitus Orientation/consciousness: oriented to person, oriented to place, oriented to time and patient oriented x3 Limitations: no limitations HENMT: Head: normal to inspection and normocephalic Eyes: General: appearance normal, both eyes and all related structures Neck: Neck: normal visual inspection, full ROM and no lymphadenopathy Chest: Chest palpation & inspection: normal inspection of the chest Resp: Effort & Inspection: normal respiratory effort Auscultation: clear to auscultation bilaterally Cardio: Jugular venous distension: no JVD Rate: regular rate Rhythm: regular rhythm Heart sounds: S1 normal heart sound present and S2 normal heart sound present Peripheral pulses: Peripheral pulses 2+ throughout GI: Inspection: normal to inspection Auscultation: normal bowel sounds Skin: General skin exam: normal color and no rashes or lesions noted Neuro: General: oriented to person, oriented to place, oriented to time, patient oriented x3, tone normal and moves all extremities Cranial nerves: Yes CN's II-XII intact bilaterally Extrem: General: normal to inspection Right upper extremity: normal to inspection Left upper extremity: normal to inspection Right lower extremity: normal to inspection Left lower extremity: normal to inspection Psych: Appearance: grossly normal Mental Status: mental status grossly normal Speech and movement: Normal speech and movement present Objective Data Vital Signs Vital Signs: Vital Signs - 24 hr 03/28/24 08:19 03/28/24 14:00 03/28/24 20:00 Temperature 97.1 F L Pulse Rate 102 H Respiratory Rate 16 Blood Pressure 128/65 Pulse Oximetry 100 Oxygen Delivery Room Air Room Air 03/28/24 20:26 03/28/24 23:49 03/29/24 05:23 Temperature 97.6 F Pulse Rate 80 97 Respiratory Rate 18 16 Blood Pressure 134/63 108/56 L Pulse Oximetry 100 100 100 Oxygen Delivery Room Air Intake/Output Intake/Output: Intake & Output 03/26/24 03/27/24 03/28/24 03/29/24 23:59 23:59 23:59 23:59 Intake Total 2606 3286 2916 550 Output Total 550 Balance 2056 3286 2916 550 Meds/Results Medications: Active Medications Generic Name Dose Route Start Last Admin Trade Name Freq PRN Reason Stop Dose Admin Acetaminophen 650 mg 03/24/24 13:24 Acetaminophen 325 Mg Tablet PO Q4H PRN Mild Pain (1-3) or Fever Hydrocodone Bitart/Acetaminophen 1 tab 03/24/24 13:24 Hydrocodone/Acetaminophen (*Crx) 5-325 Mg Tablet PO Q4H PRN Pain Rated 4-6 Methylprednisolone Sodium 266 mls @ 44.333 mls/hr 03/26/24 12:30 03/28/24 15:10 Succinate 1,000 mg/ Dextrose IVPB 03/30/24 14:59 Infused QAM JD Infusion Lisinopril 40 mg 03/25/24 09:00 03/28/24 08:20 Lisinopril 20 Mg Tablet PO 40 mg DAILY JD Administration Ondansetron HCl 4 mg 03/24/24 13:24 Ondansetron Inj 4 Mg/2 Ml Vial IV PUSH Q4H PRN Nausea Radiology Results: ITS Impressions Head CT 03/24/24 10:45 IMPRESSION: 1. Mild nonspecific cerebral white matter disease. The differential diagnosis includes premature chronic small vessel ischemic disease (especially if the patient has cardiovascular risk factors), demyelinating disease such as multiple sclerosis, drug abuse, vasculitis, or reactive astrocytosis (gliosis) secondary to nonspecific etiology. Brain MRI 03/25/24 12:34 IMPRESSION: 1. Brain lesions, most likely multiple sclerosis. Lumbar Spine MRI 03/25/24 12:37 IMPRESSION: 1. 7 degrees lumbar levocurvature with minimal spondylosis. Otherwise unremarkable lumbar spine MRI with no abnormally enhancing lesions. Cervical Spine MRI 03/25/24 12:39 IMPRESSION: 1. Spinal cord lesions, consistent with multiple sclerosis. Thoracic Spine MRI 03/25/24 12:42 IMPRESSION: 1. 2 spinal cord lesions with increased T2 signal but without enhancement in the lower thoracic spine and a couple in the lower cervical spine consistent with multiple sclerosis. Lumbar Puncture Fluoroscopy 03/26/24 11:34 IMPRESSION: 1. Successful fluoro-guided lumbar puncture with normal opening pressure of 14 cm water. Quality VTE Prophylaxis VTE prophylaxis: mechanical ordered Hospitalist [facility] Advance Care Plan I have confirmed that the patient's Advanced Care Plan is present, code status is documented, or surrogate decision maker is listed in patient medical record.: Yes Medication Reconciliation I have utilized all available resources to obtain, update and review the patients current medications (includes all prescriptions, OTC, herbals, cannabis, and nutritional supplements).: Yes
[2024-03-29] MEDS: methylPREDNISolone SOD SUCC 1,000 MG in DEXTROSE 5% IN WATER 250 ML 44.3 MG IVPB (09:29)
[2024-03-29] MEDS: lisinopriL 20 MG TABLET 40 MG PO (09:29)
[2024-03-29 09:30] VITALS: O2SAT 100
[2024-03-29 14:00] VITALS: BP 124/71; PULSE 81; RESP 18; TEMP 36.2; O2SAT 100
[2024-03-29 21:56] VITALS: BP 128/70; PULSE 72; RESP 20; TEMP 36.2; O2SAT 100
[2024-03-30 06:00] VITALS: BP 121/65; PULSE 94; RESP 20; TEMP 36.2; O2SAT 100
[2024-03-30] MEDS: methylPREDNISolone SOD SUCC 1,000 MG in DEXTROSE 5% IN WATER 250 ML 44.3 MG IVPB (09:31)
[2024-03-30] MEDS: lisinopriL 20 MG TABLET 40 MG PO (09:31)
--- NOTE | 2024-03-30 12:05 | P.DS_ITS ---
DS: Admitting Diagnosis Discharge Date 03/30/24 Admitting Diagnosis Paresthesia, HTN, HLD DS: Discharge Diagnosis Discharge Diagnosis (1) Paresthesia: Code(s): R20.2 - Paresthesia of skin Status: Acute Assessment and Plan: -continue to monitor, --> most likely related to MS 03/30/24: * All testing supporting dx of MS. * Pt has been evaluated by Neurology and has received high dose steroids for 5 doses. * Remains with symptoms of pins and needles in anterior torso and in BLE and hands. * Independently ambulatory. * Pt appears in good spirits and has an appointment with Dr. Marmolejo in two days. * No orders per Neurology note to continue any steroids as outpt in interim time. * Pt OK to discharge. (2) Abnormal CT of brain: Code(s): R90.89 - Other abnormal findings on diagnostic imaging of central nervous system Status: Acute Assessment and Plan: ##MS -->Brain CT showed mild nonspecific cerebral white matter disease and concerns w ere for possible multiple sclerosis. -->MRI of the brain and spine suggest MS - No motor deficit - Neuro check - Consulted neurologist for evaluation treatment - follow up outpatient sunday in office as scheduled - Underwent lumbar puncture without complication, no improvement of the numbness of his hands and feet. No new issues - Started methylprednisone IV 1 g daily on 03/26 continue methylprednisolone IV for 5 doses 03/30/24: * See #1 (3) Hypertension: Code(s): I10 - Essential (primary) hypertension Status: Acute Assessment and Plan: stable continue home medications 03/30/24: * Continue home medications as outpt. (4) Hyperlipidemia: Qualifiers: Hyperlipidemia type: unspecified Qualified Code(s): E78.5 - Hyper lipidemia, unspecified Code(s): E78.5 - Hyperlipidemia, unspecified Status: Acute Assessment and Plan: stable continue home medications 03/30/24: * Continue home medications as outpt. DS: Summary Hospital Course Reason for hospitalization: Paresthesias Hospital Course: This very pleasant 24-year-old male with PMH of hypertension and hyperlipidemia presented to the emergency department via private vehicle for evaluation of numbness in his fingers, toes, and stomach on 03/24/24. He has had waxing and waning paresthesias for several months. The pt eventually states that he had difficulty gripping tools at work and that is what caused him to come to ER for evaluation. He denied any enciting events, trauma or other acute issues that started symptoms. His symptoms have never caused him to have any falls, balance issues, or any difficulty swallowing or speaking. He has had no ROM deficits and no acute change in strength until today. ER workup was performed and pt's WBC's were noted to be marginally decreased at 4.2, and CT scan showed a mild, non-specific cerebral white matter disease. He was ultimately admitted Status at Discharge Cognitive/behavioral status at discharge: At baseline Functional status at discharge: independent ambulation Overall status at discharge: patient is not back to baseline Time Spent with Patient Time attestation: Total time spent providing and/or coordinating discharge services: Time spent: Greater than 30 minutes Specific discharge activities: follow up, disease process Exam Narrative: GENERAL: Pleasant, in no acute distress. Well-nourished. - EYES: EOMI. Anicteric. - HENT: Moist mucous membranes. - LUNGS: Clear to auscultation bilateral ly, no wheezing, rhonchi, or rales. - CARDIOVASCULAR: Regular rate and rhyth m. No murmur. No JVD. - ABDOMEN: Soft, non-tender and non-dist ended. No palpable masses. - EXTREMITIES: No edema. Peripheral puls es 2+. Non-tender. - NEUROLOGIC: No focal neurological defi cits. CN II-XII grossly intact. Numbness of hands and feet - PSYCHIATRIC: Awake, Alert and oriented x 3. Appropriate mood and affect. - SKIN: No rashes or lesions. Warm. - LYMPH: No cervical lymphadenopathy. DS: Data Data Completed and Pending Completed studies during hospitalization: ITS Impressions Head CT 03/24/24 10:45 IMPRESSION: 1. Mild nonspecific cerebral white matter disease. The differential diagnosis includes premature chronic small vessel ischemic disease (especially if the patient has cardiovascular risk factors), demyelinating disease such as multiple sclerosis, drug abuse, vasculitis, or reactive astrocytosis (gliosis) secondary to nonspecific etiology. Brain MRI 03/25/24 12:34 IMPRESSION: 1. Brain lesions, most likely multiple sclerosis. Lumbar Spine MRI 03/25/24 12:37 IMPRESSION: 1. 7 degrees lumbar levocurvature with minimal spondylosis. Otherwise unremarkable lumbar spine MRI with no abnormally enhancing lesions. Cervical Spine MRI 03/25/24 12:39 IMPRESSION: 1. Spinal cord lesions, consistent with multiple sclerosis. Thoracic Spine MRI 03/25/24 12:42 IMPRESSION: 1. 2 spinal cord lesions with increased T2 signal but without enhancement in the lower thoracic spine and a couple in the lower cervical spine consistent with multiple sclerosis. Lumbar Puncture Fluoroscopy 03/26/24 11:34 IMPRESSION: 1. Successful fluoro-guided lumbar puncture with normal opening pressure of 14 cm water. Labs on day of discharge: Preliminary micro results at discharge 03/26/24 09:42 CSF Culture - Preliminary Cerebral Spinal Fluid 03/26/24 09:42 Fungal Culture and Stain - Preliminary Cerebral Spinal Fluid Discharge Plan Discharge Attending physician on discharge: Wendy Gallegos Consulting providers: Asher Noble Discharging Clinician: Wendy Gallegos Anticipated Discharge Date/Time: 03/30/24 12:17 Patient Disposition: Home, Self-Care Activity: as tolerated Diet: regular Discharge Instructions: Thank you for allowing us to evaluate and manage you in the hospital for your symptoms. Your workup consisted of imaging, labs and findings are concerning for Multiple Sclerosis. You have been evaluated by Neurology and have an appointment scheduled for Sunday. There are no new prescriptions for follow up in the interim time. Please continue all home medications, allow for rest and do not over exert. Activity as tolerated and make sure you keep appointment with Dr. Marmolejo. Patient Language: Thai Stand Alone Forms: General Discharge Information Follow-up/Referrals: Mihaela Murray APRN [Primary Care Provider] - Call for Appointment Kenzie Marmolejo MD [Physician] - (Keep upcoming appointment on Sunday.) Discharge Medications: Continued lisinopril 40 mg tablet 40 mg PO DAILY Qty: 90 1RF Zepbound 12.5 mg/0.5 mL pen injector 12.5 mg subcut WEEKLY Qty: 2 0RF Date of admission: 03/26/24 10:55 Primary Care Provider: Mihaela Murray Admitting Provider: Roberto Lema Attending physician on admission: Wendy Gallegos Condition: Stable Quality VTE Prophylaxis VTE prophylaxis: mechanical ordered Hospitalist MIPS Heart Failure (Exclusion) Patient has history of Heart Transplant or Left Ventricular Assistive Device?: No IF YES, STOP HERE Heart Failure (Qualifier) Patient has current or prior documentation of LVEF less than or equal to 40%, or mod/servere depressed LVSF?: No IF NO, STOP HERE
[2024-04-04 07:26] LABS: Reference Lab Test Name CSF Protein Elecroph
== END 2024-03-30 16:23 | disposition home or self-care (01) | DRG 60 ==
LOC: ANHED 13:24 → ANH3MED 17:22
PROVIDERS: Hospitalist; Physician Assistant; Psychiatry & Neurology Neurology; Admitting Provider General Practice; Emergency Provider Emergency Medicine; PCP Nurse Practitioner Family; Visit Provider Nurse Practitioner Adult Health
DX: G35 Multiple sclerosis (principal); I10 Essential (primary) hypertension; E78.5 Hyperlipidemia, unspecified
CPT/HCPCS: 36415; 62328; 70450; 70553; 72156; 72157; 72158; 80048; 80053; 82040; 82042; 82306; 82607; 82746; 82784; 82945; 83735; 83873; 83916; 84100; 84157; 84166; 84207; 84425; 84439; 84443; 84480; 85025; 85027; 85049; 85610; 85730; 87015; 87070; 87102; 87116; 87206; 89051; 96374; 96375; 99285; A9270; A9577; G0378; J2919; J7060

== ENCOUNTER 2025-01-21 13:32 | Outpatient (CLI) | payer OTHER, SELFPAY ==
--- NOTE | ~2025-01-21 | US_ITS ---
EXAMINATION: US thyroid DATE: 01/21/2025 14:05 INDICATION: Nodule TECHNIQUE: Multiple ultrasound images of the thyroid were obtained. COMPARISON: None. FINDINGS: The right thyroid lobe measures 5.1 x 1.9 x 2.6 cm. The left thyroid lobe measures 4.3 x 1.6 x 1.9 cm. There is normal echotexture and echogenicity throughout the thyroid gland. No discrete nodules identified. Normal vascular flow is present. Isthmus: 3.3 mm IMPRESSION: 1. Normal-appearing thyroid. No suspicious nodules. Reviewed, dictated and finalized at location A. TER IN
--- OUTSIDE RECORDS SUMMARY | 2025-01-21 16:06 | XMS_ITS | Clinical Summary ---
Author Organization [facility] Address [address] [place] [address] Care Team Providers Care Regional Wildlife Agent Name Role Phone Mihaela Murray NP Primary Care Provider [phone] Allergies No known active allergies Medications lisinopriL (PRINIVIL,ZESTR IL) 20 mg tablet Take 1 tablet (20 mg total) by mouth daily 04/29/2024 Active Kesimpta Pen 20 mg/0.4 mL pen injector 04/17/2024 Active cholecalciferol (VITAMIN D-3) 5,000 unit tablet Take 0.5 tablets (2,500 Units total) by mouth daily Active Active Problems No known active problems Encounters Date Type Department Care Team Description 11/25/2024 1:30 PM CDT Office Visit [facility] Medicine Multiple Sclerosis [address] [facility] [address] [place] [address] Chantal Castillo MD Relapsing remitting multiple sclerosis (Primary Dx); Immunocompromised state due to drug therapy; High risk medication use from Last 3 Months Surgical History Surgery Date Site/Laterality Comments KNEE SURGERY Medical History Medical History Date Comments Hypertension Family History Medical History Relation Name Comments Coronary artery disease Father Hyperlipidemia Father Hypertension Father Gumaro's thyroiditis Mother Relation Name Status Comments Father Mother Social History Tobacco Use Types Packs/Day Years Used Date Smoking Tobacco: Former Cigars Smokeless Tobacco: Current Sex and Gender Information Value Date Recorded Sex Assigned at Not on file Legal Sex Male 11:59 AM CDT Gender Identity Not on file Sexual Orientation Not on file Last Filed Vital Signs Vital Sign [place] Time Taken Comments Blood Pressure 154/84 11/25/2024 1:13 PM CDT RA: 154/83 P: 101 Pulse 89 11/25/2024 1:13 PM CDT Temperature 36.9 C (98.4 F) 05/20/2024 1:56 PM CDT Respiratory Rate - - Oxygen Saturation - - Inhaled Oxygen Concentration - - Weight 89.3 kg (196 lb 12.8 oz) 11/25/2024 1:13 PM CDT Height 182.9 cm (6') 11/25/2024 1:13 PM CDT Body Mass Index 26.69 11/25/2024 1:13 PM CDT Plan of Treatment Health Maintenance Due Date Last Done Comments Depression Screening 2000 Hepatitis C Screening 2000 Pneumococcal vaccine <65 (1 of 2 - PPSV23, PCV20, or PCV21) 11/21/2001 09/26/2001, 04/06/2001, 2000, Additional history exists Regular Well Visit/Exam 18-64 2018 Zoster Vaccine (1 of 2) 2019 Influenza Vaccine (#1) 2024 , 12/10/2019, 11/17/2019, Additional history exists DTaP/Tdap/Td Vaccine (8 - Td or Tdap) 05/25/2026 05/25/2016, 07/27/2011, 05/10/2005, Additional history exists Hepatitis B Screening Completed 04/06/2001 , 2000, 2000, Additional history exists Varicella Vaccines Completed 05/13/2008, 04/06/2001 HPV Vaccines Completed 05/25/2016, 01/06, 11/19/2015 Insurance [facility] Care Teams Regional Wildlife Agent Relationship Specialty Start Date End Date Mihaela Murray NP [address] [place] [address] PCP - General Family Medicine 04/29/24
--- OUTSIDE RECORDS SUMMARY | 2025-01-21 16:06 | XMS_ITS | Clinical Summary ---
Author Organization [facility] Address [address] [facility] [facility] [place] [address] Care Team Providers Care Gateman Name Role Phone Jannet Srinivasan MD Primary Care Provider [phone] Source Comments [facility],non-owned Affiliates and Associated Physician Practices is amultiple site organization consisting of ambulatory clinics and hospital sitesin [place], [place], [place] and [place]. This disclosure is being madepursuant to the Care Everywhere program and may not contain all information available regarding this patient. Last updated 17.[facility] Allergies No known active allergies Medications * Be aware that medications may not be up to date on this document. Alwaysverify current medications with the patient. lisinopril (PRINIVIL; ZESTRIL) 30 MG tablet TAKE [...] 12/02/2013 Hypercholesteremia High risk medication use Immunizations Immunization Administration Dates Next Due INFLUENZA VACCINE 12/10/2019 Social History Tobacco Use Types Packs/Day Years Used Date Smoking Tobacco: Light Smoker Smokeless Tobacco: Never Comments:smokes one cigarett e, once a week Alcohol Use Standard Drinks/Week Comments No 0 (1 standard drink = 0.6 oz pur e alcohol) Sex and Gender Information Value Date Recorded Sex Assigned at Not on file Legal Sex Male 1:28 PM CDT Gender Identity Not on file Sexual Orientation Not on file Last Filed Vital Signs Vital Sign [place] Time Taken Comments Blood Pressure 152/78 12/24/2019 2:14 PM SOLDER TECHNICIAN Pulse 94 10/03/2018 5:06 PM CDT Temperature 36.9 C (98.4 F) 10/03/2018 5:06 PM CDT Respiratory Rate 16 10/03/2018 5:06 PM CDT Oxygen Saturation 99% 10/03/2018 5:06 PM CDT Inhaled Oxygen Concentration - - Weight 129.9 kg (286 lb 6 oz) 12/24/2019 2:14 PM SOLDER TECHNICIAN Height 179.5 cm (5' 10.67) 12/24/2019 2:[address] Body Mass Index 40.32 12/24/2019 2:14 PM SOLDER TECHNICIAN Plan of Treatment Health Maintenance Due Date Last Done Comments HIV SCREENING 2015 HPV VACCINE (1 - Male 3-dose series) 2015 HEPATITIS C SCREENING 03/20/2018 DTAP/TDAP/TD VACCINES (1 - Tdap) 2019 HEPATITIS B VACCINE (1 of 3 - 19+ 3-dose series) 2019 PNEUMOCOCCAL VACCINE (1 of 2 - PCV) 2019 DEPRESSION SCREENING 02/06/2024 COVID-19 VACCINE (1 - 2024-2 6 season) 2024 INFLUENZA VACCINE (#1) 2024 12/10/2019 ZOSTER VACCINE (1 of 2) 2050 HIB VACCINE Aged Out No longer eligi ble based on patient's age to complete this topic MENINGOCOCCAL (Group B) VACC INE SHARED DECISION-MAKING Aged Out No longer eligibl e based on patient's age to complete this topic MENINGOCOCCAL GROUPS A/C/Y/W VACCINE Aged Out No longer eligible b ased on patient's age to complete this topic Medical Devices Implanted Type Area Solutions Specialist Device Identifier Shelf Expiration Date Model / Serial / Lot Truespan Meniscal Repair System Implanted:Qty: 6 on 05/01/2016 by Gume Chahal MD at [facility] Right: Knee 02/04/2019 [id number] / / [id number] Insurance [facility] [place] [id number] [place] [address] [facility] Care Teams Gateman Relationship Specialty Start Date End Date Jannet Srinivasan MD [address] [place] [address] [address] [place] [address] PCP - General Pediatrics 11/24/13
== END 2025-01-21 13:33 | disposition home or self-care (01) ==
PROVIDERS: PCP Nurse Practitioner Family; Visit Provider Nurse Practitioner Family
DX: E04.1 Nontoxic single thyroid nodule (principal)
CPT/HCPCS: 76536